=== PATIENT | female | born 1940 | race Hispanic/Latino ===

== ENCOUNTER 2020-07-10 09:42 | Inpatient (IN) | payer OTHER ==
[2020-07-10 10:44] LABS: Absolute Lymphocytes (CBC) 0.6 K/uL (0.7-4.9); Basophils % 0.6 % (0-1.3); Hematocrit 44.4 % (36.0-45.0); MPV 9.3 fL (7.6-11.3); RBC Red Blood Cell Count 4.99 M/uL (3.86-4.86)
[2020-07-10 10:50] LABS: Protime INR 0.95
[2020-07-10] MEDS ORDERED: METHYLPREDNISOLONE 125 MG INJ ONE (10:53)
[2020-07-10 11:20] LABS: Albumin 2.9 g/dL (3.4-5.0); Bilirubin Direct 0.2 mg/dL (0-0.2); Bilirubin Total 0.4 mg/dL (0.2-1.0); Ferritin 563.4 ng/mL (8-388); Potassium 4.2 mmol/L (3.5-5.1); Protein, Total 7.4 g/dL (6.4-8.2); Troponin (Emerg Dept Use Only) 0.07 ng/mL (0.0-0.045)
--- NOTE | 2020-07-10 11:26 | ER ---
Nurse's Notes [facility] Name: Liset Doll Age: 80 yrs Sex: Female : 1940 Arrival Date: 07/10/2020 Time: 09:45 Bed 14 Private MD: Diagnosis: Coronavirus infection, unspecified;Pneumonia, unspecified organism;Streptococcal pharyngitis;Hypoxemia Presentation: 07/10 10:05 Chief complaint: Patient's son or daughter states: grand daughter: Went to [place] last ca1 night for sore throat, decreased appetite and feeling sick. Reports fever 2- 3 days ago, cough. Covid+. Coronavirus screen: Client reports previous positive COVID test result. Date of collection: July 09, 2020 [place] Staff notified of need for isolation. Ebola Screen: Patient negative for fever greater than or equal to 101.5 degrees Fahrenheit, and additional compatible Ebola Virus Disease symptoms Patient denies exposure to infectious person. Patient denies travel to an Ebola-affected area in the 21 days before illness onset. No symptoms or risks identified at this time. Initial Sepsis Screen: Does the patient meet any 2 criteria? No. Patient's initial sepsis screen is negative. Does the patient have a suspected source of infection? No. Patient's initial sepsis screen is negative. Risk Assessment: Do you want to hurt yourself or someone else? Patient reports no desire to harm self or others. Onset of symptoms was July 10, 2020. 10:05 Method Of Arrival: Wheelchair ca1 10:05 Acuity: JOHANN 2 ca1 Historical: - Allergies: 10:10 PENICILLINS; ca1 - PMHx: 10:10 Hypertension; ca1 - PSHx: 10:10 Cholecystectomy; ca1 - Immunization history:: Adult Immunizations up to date, Pneumococcal vaccine is up to date, Flu vaccine is up to date. - Social history:: Smoking status: Patient denies any tobacco usage or history of. - Family history:: not pertinent. - Hospitalizations: : No recent hospitalization is reported. Screenin:49 Abuse screen: Denies threats or abuse. Denies injuries from another. Nutritional zb screening: No deficits noted. Tuberculosis screening: No symptoms or risk factors identified. Fall Risk None identified. Assessment: 10:47 General: Appears in no apparent distress. comfortable, Behavior is calm, cooperative, zb appropriate for age, Reports feeling ill for fatigue for. Pain: Denies pain. Neuro: Level of Consciousness is awake, alert, obeys commands, Oriented to person, place, time. Cardiovascular: Heart tones S1 S2 present Capillary refill < 3 seconds in bilateral fingers Patient's skin is warm and dry. Pulses are all present. Respiratory: Airway is patent Respiratory effort is even, unlabored, shallow, Respiratory pattern is regular, symmetrical. Respiratory: Reports shortness of breath cough that is Breath sounds with crackles bilaterally. in right upper lobe, left upper lobe, right middle lobe, left lower lobe and right lower lobe Breath sounds are diminished in left lower lobe and right lower lobe. GI: Abdomen is round non-distended, Bowel sounds present X 4 quads. : No signs and/or symptoms were reported regarding the genitourinary system. EENT: No signs and/or symptoms were reported regarding the EENT system. Derm: Skin is intact, Skin is pale. Musculoskeletal: Circulation, motion, and sensation intact. Capillary refill < 3 seconds, in bilateral fingers. Range of motion: intact in all extremities. 11:47 Reassessment: Patient appears in no apparent distress at this time. Patient and/or zb family updated on plan of care and expected duration. Pain level reassessed. Patient is alert, oriented x 3, equal unlabored respirations, skin warm/dry/pink. family at bedside. pt reports no pain. 12:49 Reassessment: Patient appears in no apparent distress at this time. Patient and/or zb family updated on plan of care and expected duration. Pain level reassessed. Patient is alert, oriented x 3, equal unlabored respirations, skin warm/dry/pink. pt given warm blanket. family at bedside. 13:20 Reassessment: Patient appears in no apparent distress at this time. Patient and/or zb family updated on plan of care and expected duration. Pain level reassessed. Patient is alert, oriented x 3, equal unlabored respirations, skin warm/dry/pink. family and patient updated on admission status. Vital Signs: 10:05 BP 114 / 61; Pulse 80; Resp 18 S; Temp 97.5(O); Pulse Ox 88% on R/A; Weight 80.74 kg; ca1 Height 5 ft. 4 in. (165 cm) (R); 11:07 BP 112 / 69; Pulse 76; Resp 18; Pulse Ox 94% on 3 lpm NC; zb 12:07 BP 106 / 60; Pulse 76; Resp 18; Pulse Ox 91% on 3 lpm NC; zb 12:50 BP 112 / 60; Pulse 77; Resp 18; Pulse Ox 92% on 3.5 lpm NC; zb 10:05 Body Mass Index 29.66 (80.74 kg, 165 cm) ca1 ED Course: 09:45 Patient arrived in ED. as 10:09 Triage completed. ca1 10:10 Arm band placed on right wrist. ca1 10:11 Luis Quispe MD is Attending Physician. rn 10:34 Cynthia Cazares RN is Primary Nurse. zb 10:49 Patient has correct armband on for positive identification. Bed in low position. Call zb light in reach. Side rails up X 1. Adult w/ patient. quality assurance monitor body on. Pulse ox on. NIBP on. Door closed. Noise minimized. 10:49 Inserted saline lock: 20 gauge in right antecubital area, using aseptic technique. zb 10:56 CXR XRAY In Process Unspecified. EDMS 11:25 Eldon Solano DO is Hospitalizing Provider. rn 13:07 No provider procedures requiring assistance completed. zb 13:26 Patient admitted, IV remains in place. zb Administered Medications: 10:46 Drug: SOLU-Medrol 125 mg Route: IVP; Site: right antecubital; zb 13:05 Follow up: Response: No adverse reaction zb 12:03 Drug: LevaQUIN 750 mg Volume: 150 ml; Route: IVPB; Infused Over: 90 mins; Site: right zb antecubital; 13:29 Follow up: Response: No adverse reaction; IV Status: Infusion continued upon admission zb Outcome: 11:25 Decision to Hospitalize by Provider. rn 13:20 Admitted to Med/surg accompanied by tech, via stretcher, room 403, with oxygen. zb 13:20 Condition: stable 13:20 Instructed on the need for admit, Demonstrated understanding of instructions. 13:29 Patient left the ED. zb Signatures: Dispatcher [employer] EDMS Arlene Coats Roman, MD MD rn Acob, Cheryl, RN RN ca1 Cynthia Cazares RN RN zb Corrections: (The following items were deleted from the chart) 12:25 12:07 BP 106 / 60; Pulse 76bpm; Resp 80bpm; Pulse Ox 91% 3 lpm Nasal Cannula; zb zb
--- NOTE | 2020-07-10 11:26 | EDPHYS ---
Physician Documentation [facility] Name: Liset Doll Age: 80 yrs Sex: Female : 1940 Arrival Date: 07/10/2020 Time: 09:45 Bed 14 Private MD: ED Physician Luis Quispe HPI: 07/10 10:53 This 80 yrs old Female presents to ER via Wheelchair with complaints of Covid rn Pneumonia, Strep +. 10:53 The patient has shortness of breath at rest, with light activity. Onset: The rn symptoms/episode began/occurred 1 week(s) ago. Duration: The symptoms are continuous. The patient's shortness of breath is aggravated by exertion, light activity, talking, walking. Associated signs and symptoms: Pertinent positives: productive cough, fever, Pertinent negatives: hemoptysis, loss of consciousness. Severity of symptoms: At their worst the symptoms were moderate in the emergency department the symptoms are unchanged. The patient has not experienced similar symptoms in the past. The patient has been recently seen by a physician:. Seen last night at [place], COVID+ and strep +, told needed admission but did not want to be admitted at [facility]. Comes here for sob and because wants to be admitted to a hospital instead of [facility]. . Historical: - Allergies: 10:10 PENICILLINS; ca1 - PMHx: 10:10 Hypertension; ca1 - PSHx: 10:10 Cholecystectomy; ca1 - Immunization history:: Adult Immunizations up to date, Pneumococcal vaccine is up to date, Flu vaccine is up to date. - Social history:: Smoking status: Patient denies any tobacco usage or history of. - Family history:: not pertinent. - Hospitalizations: : No recent hospitalization is reported. ROS: 11:04 Constitutional: + fever Eyes: Negative for injury, pain, redness, and discharge, ENT: + rn congestion and sore throat Neck: Negative for injury, pain, and swelling, Cardiovascular: Negative for chest pain, palpitations, and edema, Respiratory: + cough and sob Abdomen/GI: Negative for abdominal pain, nausea, vomiting, diarrhea, and constipation, MS/Extremity: Negative for injury and deformity, Skin: Negative for injury, rash, and discoloration, Neuro: Negative for headache, numbness, tingling, and seizure. Exam: 11:09 Constitutional: This is a well developed, well nourished patient who is awake, alert, rn and in no acute distress. Head/Face: Normocephalic, atraumatic. ENT: dry MM, no stridor Cardiovascular: Regular rate and rhythm. No pulse deficits. Respiratory: + mild tachypnea Abdomen/GI: Soft, non-tender Skin: warm, dry MS/ Extremity: Pulses equal, no cyanosis. Neurovascular intact. Full, normal range of motion. Equal circumference. Neuro: Awake and alert, GCS 15 Vital Signs: 10:05 BP 114 / 61; Pulse 80; Resp 18 S; Temp 97.5(O); Pulse Ox 88% on R/A; Weight 80.74 kg; ca1 Height 5 ft. 4 in. (165 cm) (R); 11:07 BP 112 / 69; Pulse 76; Resp 18; Pulse Ox 94% on 3 lpm NC; zb 12:07 BP 106 / 60; Pulse 76; Resp 18; Pulse Ox 91% on 3 lpm NC; zb 12:50 BP 112 / 60; Pulse 77; Resp 18; Pulse Ox 92% on 3.5 lpm NC; zb 10:05 Body Mass Index 29.66 (80.74 kg, 165 cm) ca1 MDM: 10:11 Patient medically screened. rn 11:21 Differential diagnosis: pneumonia, Pneumothorax pulmonary edema, Sepsis COVID. Data rn reviewed: vital signs, nurses notes, lab test result(s), radiologic studies, plain films, and as a result, I will admit patient. Counseling: I had a detailed discussion with the patient and/or guardian regarding: the historical points, exam findings, and any diagnostic results supporting the discharge/admit diagnosis, lab results, radiology results, the need for further work-up and treatment in the hospital. Admission orders: after a detailed discussion of the patient's condition and case, the admit orders are written by me. ED course: Pt with COVID pneumonia, oxygen saturation 79% on RA, will admit to Dr. Solano. . 07/10 10:12 Order name: Blood Culture Adult (2) rn 07/10 10:12 Order name: BMP; Complete Time: : rn 07/10 10:12 Order name: C-Reactive Protein; Complete Time: : rn 07/10 10:12 Order name: CBC with Diff; Complete Time: 11: rn 07/10 10:12 Order name: Ferritin; Complete Time: 11: rn 07/10 10:12 Order name: Lactate; Complete Time: : rn 07/10 10:12 Order name: LFT's; Complete Time: 11: rn 07/10 10:12 Order name: Procalcitonin; Complete Time: 11: rn 07/10 10:12 Order name: PT-INR; Complete Time: : rn 07/10 10:12 Order name: Ptt, Activated; Complete Time: 11: rn 07/10 10:12 Order name: Troponin (emerg Dept Use Only); Complete Time: 11: rn 07/10 10:12 Order name: CXR XRAY; Complete Time: 12:10 rn 07/10 10:12 Order name: EKG; Complete Time: 10:13 rn 07/10 10:12 Order name: Cardiac monitoring; Complete Time: 10:35 rn 07/10 10:12 Order name: Droplet/Contact Precautions; Complete Time: 10:35 rn 07/10 10:12 Order name: EKG - Nurse/Tech; Complete Time: 10:34 rn 07/10 10:12 Order name: IV Start; Complete Time: 10:34 rn 07/10 10:12 Order name: Labs collected and sent; Complete Time: 10:34 rn 07/10 10:12 Order name: O2 Per Protocol; Complete Time: 10:34 rn 07/10 10:12 Order name: O2 Sat Monitoring; Complete Time: 10:35 rn 07/10 12:12 Order name: Social Service Consult EDMS Administered Medications: 10:46 Drug: SOLU-Medrol 125 mg Route: IVP; Site: right antecubital; zb 13:05 Follow up: Response: No adverse reaction zb 12:03 Drug: LevaQUIN 750 mg Volume: 150 ml; Route: IVPB; Infused Over: 90 mins; Site: right zb antecubital; 13:29 Follow up: Response: No adverse reaction; IV Status: Infusion continued upon admission zb Disposition: 07/10/20 11:25 Hospitalization ordered by Eldon Solano for Inpatient Admission. Preliminary diagnosis are Coronavirus infection, unspecified, Pneumonia, unspecified organism, Streptococcal pharyngitis, Hypoxemia. - Bed requested for Telemetry/MedSurg (Inpatient). - Status is Inpatient Admission. zb - Condition is Stable. - Problem is new. - Symptoms have improved. Signatures: Dispatcher [employer] EDNatasha Rosado RN Luis Avila MD MD rn Acob, JOLLY Roldan RN, Zipporah, RN RN zb Corrections: (The following items were deleted from the chart) 11:05 10:53 Seen last night at [facility], COVID+ and strep +, told needed admission but did not rn want to be admitted at [facility].. rn 11:09 11:04 Constitutional: + fever Eyes: Negative for injury, pain, redness, and discharge, rn eligibility: + congestion and sore throat Neck: Negative for injury, pain, and swelling, Cardiovascular: Negative for chest pain, palpitations, and edema, Respiratory: + cough and sob Abdomen/GI: Negative for abdominal pain, nausea, vomiting, diarrhea, and constipation, MS/Extremity: Negative for injury and deformity, Skin: Negative for injury, rash, and discoloration, Neuro: Negative for headache, numbness, tingling, and seizure, rn 12:19 11:25 Hospitalization Ordered by Eldon Solano DO for Inpatient Admission. Preliminary dw diagnosis is Coronavirus infection, unspecified; Pneumonia, unspecified organism; Streptococcal pharyngitis; Hypoxemia. Bed requested for Telemetry/MedSurg (Inpatient). Status is Inpatient Admission. Condition is Stable. Problem is new. Symptoms have improved. rn 13:29 12:19 07/10/2020 11:25 Hospitalization Ordered by Eldon Solano DO for Inpatient zb Admission. Preliminary diagnosis is Coronavirus infection, unspecified; Pneumonia, unspecified organism; Streptococcal pharyngitis; Hypoxemia. Bed requested for Telemetry/MedSurg (Inpatient). Status is Inpatient Admission. Condition is Stable. Problem is new. Symptoms have improved. dw
--- NOTE | 2020-07-10 11:55 | RAD REPORT ---
EXAM DESCRIPTION: Bahman Single View07/10/2020 10:56 am CLINICAL HISTORY: Cough COMPARISON: 2007 FINDINGS: Moderate to marked right and moderate left alveolar opacities within the lungs. The heart is normal size IMPRESSION: Bilateral pneumonia right worse than left
--- NOTE | 2020-07-10 12:04 | P.HP ---
Certification for Inpatient Patient admitted to: Observation With expected LOS: <2 Midnights Patient will require the following post-hospital care: Other (Home oxygen) Practitioner: I am a practitioner with admitting privileges, knowledge of patient current condition, hospital course, and medical plan of care. Services: Services provided to patient in accordance with Admission requirements found in Title 42 Section 412.3 of the Code of Federal Regulations Patient History Date of Service: 07/10/20 Primary Care Provider: Mt Burnham NP Reason for admission: Shortness of breath, fatigue History of Present Illness: 80-year-old female with history of hypertension presented to the emergency room with increased fatigue and shortness of breath. Patient was seen last night at [facility]. Patient was found to be positive for COVID and Streptococcus. The facility recommended 24 hr observation. She preferred to go home. At home she continued to have shortness of breath. Decrease appetite, poor intake, and shortness of breath continued. Patient denied any nausea, vomiting. No significant chest pain noted. Family brought her in for further evaluation. In the ER patient was evaluated. Room-air saturations were in the 70s. Patient required oxygen. Currently on 3 L per nasal cannula at 94%. Vital signs sta ble. Pro calcitonin 0.14. Ferritin 563. CRP 113. Troponin 0.07. White count 3.9, hemoglobin 14.9. Platelet count 131. Sodium 139, potassium 4.2. BUN of 23, creatinine 0.97 with a GFR 55. Glucose 242. Patient given Levaquin and Solu- Medrol in the emergency room. Patient admitted for further evaluation and treatment. I saw the patient ER, family at bedside. Patient stable this time. 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 Home medications list reviewed: Yes - Past Medical/Surgical History Diabetic: No -: Hypertension -: Tinea pedis -: Cholecystectomy -: Hernia surgery Psychosocial/ Personal History: Patient - Family History Family History: Reviewed- Non-Contributory - Social History Smoking Status: Never smoker Alcohol use: No CD- Drugs: No Caffeine use: No Place of Residence: Home Review of Systems General: Fever, Weakness, Malaise Eyes: Unremarkable ENT: Nose Congestion, Throat Pain, As per HPI Respiratory: Cough, Shortness of Breath, SOB with Excertion, As per HPI Cardiovascular: Unremarkable Gastrointestinal: Unremarkable Genitourinary: Unremarkable Musculoskeletal: Unremarkable Integumentary: Unremarkable Neurological: As per HPI Lymphatics: Unremarkable Physical Examination - Physical Exam General: Alert, In no apparent distress, Oriented x3, Cooperative HEENT: Atraumatic, Normocephalic, Other (Dry mucous membranes) Neck: Supple Respiratory: Diminished (Bilateral), Other (Patient on 3 L per nasal cannula) Cardiovascular: Normal pulses, Regular rate/rhythm Gastrointestinal: Normal bowel sounds, No tenderness, No masses, No rebound, No guarding Musculoskeletal: No erythema, No tenderness, No warmth Integumentary: No tenderness/swelling, No erythema, No warmth, No cyanosis Neurological: Normal speech, Normal strength at 5/5 x4 extr, Normal tone, Normal affect - Studies Laboratory Data (last 24 hrs) 07/10/20 10:30: PT 11.2, INR 0.95, APTT 27.4 07/10/20 10:30: WBC 3.9 L, Hgb 14.9, Hct 44.4, Plt Count 131 L 07/10/20 10:30: Sodium 139, Potassium 4.2, BUN 23 H, Creatinine 0.97, Glucose 242 H, Total Bilirubin 0.4, AST 42 H, ALT 33, Alkaline Phosphatase 72 Assessment and Plan - Plan Impression: Fatigue, decreased appetite, shortness of breast secondary to COVID 19 pneumonia with hypoxia complicated with positive strep Hypertension Hyperglycemia suspect new diabetes mellitus type 2 Acute renal insufficiency likely from dehydration Plan: Fatigue, decreased appetite, shortness of breast secondary to COVID 19 pneumonia with hypoxia complicated with positive strep: Patient will be admitted to the COVID unit. Will maintain sats above 93%. Patient currently on 3 L per nasal cannula. Continue with Solu-Medrol. Will monitor ferritin and CRP. Will continue with Levaquin orally. Will provide Eliquis due to increase risk of PE/DVT. Will continue with vitamin supplementation including vitamin-C, D, thiamine, and melatonin. Will monitor closely. Consult pulmonology to further evaluate. Encourage oral intake. Patient also with hyperglycemia suspect underlying diabetes. Will check A1c. Sliding scale in place. Anticipate improvement over the next 48 hr. Patient will likely require home oxygen. Patient comes from home. Plan of care will be to discharge patient back to home. Advanced care directives address. Patient full code. Advanced care planning-30 min. Hypertension: Restart losartan. Hold nifedipine XR 30 mg. If blood pressure is elevated will restart nifedipine as well. Hyperglycemia suspect new diabetes mellitus type 2: Patient appears to have elevated blood sugar likely underlying diabetes. Check A1c. Will monitor closely. Provide sliding scale with Accu-Cheks. Acute renal insufficiency likely from dehydration: Encourage oral intake. Provide Glucerna supplementation. Discharge Plan: Home Plan to discharge in: 48 Hours - Advance Directives Does patient have a Living Will: No Does patient have a Durable POA for Healthcare: No - Code Status/Comfort Care Code Status Assessed: Yes (Patient full code) Time Spent Managing Pts Care (In Minutes): 55
[2020-07-10] MEDS ORDERED: Levofloxacin 750mg IV 750 MG/150 ML BAG IV ONE (12:11)
[2020-07-10] MEDS ORDERED: ONDANSETRON 4 MG/2 ML VIAL IV PRN (13:42)
[2020-07-10 13:44] VITALS: BMI 30.5
[2020-07-10] MEDS: ASCORBIC ACID 500 MG TABLET PO SCH ×2 (14:29→19:35)
[2020-07-10 15:21] LABS: Urine Appearance CLEAR; Urine Bilirubin NEGATIVE (NEG); Urine Blood NEGATIVE (NEG); Urine Color YELLOW; Urine Glucose 2+ (NEG); Urine Microscopic Reflex ORDER UMIC; Urine Protein TRACE (NEG); Urine Urobilinogen 0.2 mg/dL (0.2-1.0); Urine pH 5.5 (5.0-7.0)
[2020-07-10 15:39] LABS: Urine Bacteria <20 /HPF (<20); Urine RBC NONE SEEN /HPF (NONE SEEN)
[2020-07-10 15:40] LABS: Urine Coarse Granular Casts 0-5 /LPF (NONE SEEN)
[2020-07-10] MEDS: INSULIN -REGULAR HUMAN 50 UNIT/0.5 ML ML SQ SCH ×2 (16:24→19:57)
[2020-07-10] MEDS: METHYLPREDNISOLONE 125 MG INJ IV SCH (16:24)
[2020-07-10 17:20] LABS: CKMB Creatine Kinase MB 4.8 ng/mL (0.3-3.6); Troponin I 0.06 ng/mL (0.0-0.045)
[2020-07-10] MEDS: ACETAMINOPHEN 500 MG TAB PO PRN (19:33)
[2020-07-10] MEDS: APIXABAN 5 MG TABLET PO SCH (19:34)
[2020-07-10] MEDS: GLUCERNA SHAKE 237 ML CAN PO SCH (19:35)
[2020-07-10] MEDS: MELATONIN 5 MG TABLET PO PRN (19:35)
[2020-07-11] MEDS: METHYLPREDNISOLONE 125 MG INJ IV SCH ×3 (00:56→16:46)
[2020-07-11 01:12] LABS: CKMB Creatine Kinase MB 4.5 ng/mL (0.3-3.6); Troponin I 0.05 ng/mL (0.0-0.045)
[2020-07-11 03:55] LABS: Absolute Lymphocytes (CBC) 0.8 K/uL (0.7-4.9); Basophils % 0.2 % (0-1.3); Hematocrit 38.1 % (36.0-45.0); Lymphocytes % 8.5 % (15.3-44.8); MPV 9.8 fL (7.6-11.3); RBC Red Blood Cell Count 4.32 M/uL (3.86-4.86)
[2020-07-11 04:18] LABS: Magnesium 2.5 mg/dL (1.8-2.4); Potassium 4.3 mmol/L (3.5-5.1); Thyroid Stimulating Hormone 0.341 uIU/mL (0.360-3.740)
[2020-07-11 04:55] LABS: Blood Morphology Comment NOT SEEN (NOT SEEN); Platelet Estimate ADEQ
[2020-07-11 06:52] LABS: C-Reactive Protein 61.8 mg/L (<3.00); Ferritin 438.7 ng/mL (8-388)
[2020-07-11] MEDS: INSULIN -REGULAR HUMAN 50 UNIT/0.5 ML ML SQ SCH ×4 (07:30→20:23)
--- NOTE | 2020-07-11 07:53 | P.PN ---
Subjective Date of Service: 07/11/20 Primary Care Provider: Mt Burnham NP Chief Complaint: Shortness of breath, fatigue Subjective: Other (Patient requiring high-flow oxygen last night. FiO2 at 80%.) Physical Examination - Vital Signs Temperature: 96.6 F Blood Pressure: 108/58 Pulse: 71 Respirations: 20 Pulse Ox (%): 86 - Physical Exam General: Alert, In no apparent distress, Cooperative HEENT: Atraumatic Neck: Supple Respiratory: Other (Patient currently on high-flow oxygen. If I O2 at 80%.) Cardiovascular: Normal pulses, Regular rate/rhythm Gastrointestinal: No ascites Integumentary: No tenderness/swelling, No erythema Neurological: Normal speech, Normal strength at 5/5 x4 extr, Normal tone, Normal affect - Studies Laboratory Data (last 24 hrs) 07/10/20 10:30: PT 11.2, INR 0.95, APTT 27.4 07/10/20 10:30: WBC 3.9 L, Hgb 14.9, Hct 44.4, Plt Count 131 L 07/10/20 10:30: Sodium 139, Potassium 4.2, BUN 23 H, Creatinine 0.97, Glucose 242 H, Total Bilirubin 0.4, AST 42 H, ALT 33, Alkaline Phosphatase 72 Medications List Reviewed: Yes Assessment & Plan Discharge Plan: Home Plan to discharge in: 48 Hours Physician Review Additional Text: Impression: Fatigue, decreased appetite, shortness of breast secondary to COVID 19 pneumonia with hypoxia complicated with positive strep Hypertension Hyperglycemia with pre diabetes Acute renal insufficiency likely from dehydration Plan: Fatigue, decreased appetite, shortness of breast secondary to COVID 19 pneumonia with hypoxia complicated with positive strep: Continue with IV Solu-Medrol, Levaquin. Patient requiring high-flow oxygen last night. Currently on Fi02 of 80%. Will wean off. Encourage incentive spirometer. Continue to monitor the patient closely. Will change to inpatient status as the patient is requiring more oxygen. Patient remains on Eliquis due to increase risk of PE/DVT. Will discuss case further with pulmonology. Continue with vitamin supplementation. Anticipate improvement over the next 48 hr. Will monitor closely. Advanced care planning address in detail with family yesterday-30 min. This included patient being full code. Patient desires to go home at discharge. Anticipate patient likely requiring home oxygen at discharge. Hypertension: Restart losartan with parameters in place. Hold if blood pressure systolic less than 120. Hold nifedipine XR 30 mg. If blood pressure is elevated will restart nifedipine as well. Hyperglycemia with pre diabetes: Hemoglobin A1c 5.9. Patient with pre diabetes. Continue to monitor Accu-Cheks and provide sliding scale. No need for basal insulin. Anticipate improvement once were able to wean off IV Solu- Medrol. Acute renal insufficiency likely from dehydration: Encourage oral intake. Provide Glucerna supplementation. Time Spent Managing Pts Care (In Minutes): 55
[2020-07-11] MEDS: FOLIC ACID 1 MG TABLET PO SCH (08:26)
[2020-07-11] MEDS: APIXABAN 5 MG TABLET PO SCH ×2 (08:26→19:42)
[2020-07-11] MEDS: THIAMINE HCL 100 MG TABLET PO SCH (08:26)
[2020-07-11] MEDS: levoFLOXacin 500 MG TAB PO SCH (08:26)
[2020-07-11] MEDS: ASCORBIC ACID 500 MG TABLET PO SCH ×3 (08:27→19:42)
[2020-07-11] MEDS: GLUCERNA SHAKE 237 ML CAN PO SCH ×2 (08:27→19:47)
[2020-07-11] MEDS: VITAMIN D 1000 UNIT TAB PO SCH (08:28)
[2020-07-11] MEDS ORDERED: LOSARTAN POTASSIUM 50 MG TABLET PO SCH ×2 (09:00)
--- NOTE | 2020-07-11 12:47 | P.CNS ---
Date of Consult: 07/11/20 Primary Care Provider: Mt Burnham NP Chief Complaint: Shortness of breath, fatigue History of Present Illness: Patient is 80 years of age with a history of hypertension admitted from the emergency room with worsening fatigue shortness of breath poor appetite she is Khmer-speaking only was admitted with hypoxemia Patient tested positive for luevano virus infection at call tests emergency room is currently on high-flow oxygen requiring high concentration Allergies Penicillins Adverse Reaction (Verified 07/10/20 13:41) Itching/Hives/Rash Home Medications: Losartan Potassium 1 tab PO DAILY 07/10/20 Nifedipine [Nifedipine ER] 1 tab PO DAILY 07/10/20 terbinafine HCL [Terbinafine HCl] 1 tab PO DAILY 07/10/20 - Past Medical/Surgical History Diabetic: No -: Hypertension -: Tinea pedis -: Cholecystectomy -: Hernia surgery Psychosocial/ Personal History: Patient - Social History Smoking Status: Never smoker Alcohol use: No CD- Drugs: No Caffeine use: No Place of Residence: Home Review of Systems is unable to be obtained Physical Examination Temp Pulse Resp BP Pulse Ox 97.8 F 69 24 H 104/51 L 95 07/11/20 08:00 07/11/20 08:00 07/11/20 08:00 07/11/20 08:00 07/11/20 08:00 General: Alert, Moderate distress Respiratory: Clear to auscultation bilaterally Cardiovascular: No edema, Normal S1 S2 - Problems (1) Pneumonia due to 2019 novel coronavirus Current Visit: Yes Status: Acute Plan: Patient is 80 years of age admitted with respiratory failure from luevano virus this chest x-ray consistent ferritin level is less than 500 CRP mildly elevated continue with present therapy requiring high-flow oxygen
[2020-07-11] MEDS: ACETAMINOPHEN 500 MG TAB PO PRN (19:42)
[2020-07-11] MEDS: MELATONIN 5 MG TABLET PO PRN (19:42)
[2020-07-12] MEDS: METHYLPREDNISOLONE 125 MG INJ IV SCH ×3 (00:25→16:50)
[2020-07-12] MEDS ORDERED: LORazepam 2 MG/ML VIAL IV ONE (03:14)
[2020-07-12 04:02] LABS: C-Reactive Protein 57.2 mg/L (<3.00); Ferritin 536.2 ng/mL (8-388)
[2020-07-12] MEDS: INSULIN -REGULAR HUMAN 50 UNIT/0.5 ML ML SQ SCH ×4 (07:30→21:00)
[2020-07-12] MEDS: GLUCERNA SHAKE 237 ML CAN PO SCH ×2 (08:30→21:09)
[2020-07-12] MEDS: levoFLOXacin 500 MG TAB PO SCH (08:30)
[2020-07-12] MEDS: ASCORBIC ACID 500 MG TABLET PO SCH ×3 (08:30→21:08)
[2020-07-12] MEDS: FOLIC ACID 1 MG TABLET PO SCH (08:30)
[2020-07-12] MEDS: VITAMIN D 1000 UNIT TAB PO SCH (08:30)
[2020-07-12] MEDS: APIXABAN 5 MG TABLET PO SCH ×2 (08:31→21:08)
[2020-07-12] MEDS: THIAMINE HCL 100 MG TABLET PO SCH (08:40)
--- NOTE | 2020-07-12 14:40 | P.PN ---
Subjective Date of Service: 07/12/20 Primary Care Provider: Mt Burnham NP Chief Complaint: Shortness of breath, fatigue Subjective: Other (Patient is slowly improving. Still on high-flow oxygen.) Physical Examination - Vital Signs Temperature: 97 F Blood Pressure: 143/67 Pulse: 72 Respirations: 20 Pulse Ox (%): 91 - Physical Exam General: Alert HEENT: Atraumatic Neck: Supple Respiratory: Other (Patient requiring high-flow oxygen) Cardiovascular: Normal pulses, Regular rate/rhythm Gastrointestinal: Normal bowel sounds Neurological: Normal speech, Normal strength at 5/5 x4 extr, Normal tone, Normal affect - Studies Medications List Reviewed: Yes Assessment & Plan Discharge Plan: Home Plan to discharge in: 72 Hours Physician Review Additional Text: Impression: Fatigue, decreased appetite, shortness of breast secondary to COVID 19 pneumonia with hypoxia complicated with positive strep Hypertension Hyperglycemia with pre diabetes Acute renal insufficiency likely from dehydration Plan: Fatigue, decreased appetite, shortness of breast secondary to COVID 19 pneumonia with hypoxia complicated with positive strep: Patient is slowly improving. Continue IV Solu-Medrol and Levaquin. CRP improving. Continue to wean off high-flow oxygen. Continue supplementation and Eliquis. Will discuss further with pulmonology. Case discussed with son. Likely home in the next 48 hr if patient can be weaned off high-flow oxygen. Will need to consider adding Remdesivir if no improvement. Will continue to assess. Hypertension: Restart losartan with parameters in place. Hold if blood pressure systolic less than 120. Hold nifedipine XR 30 mg. If blood pressure is elevated will restart nifedipine as well. Hyperglycemia with pre diabetes: Hemoglobin A1c 5.9. Patient with pre diabetes. Continue to monitor Accu-Cheks and provide sliding scale. No need for basal insulin. Anticipate improvement once were able to wean off IV Solu- Medrol. Acute renal insufficiency likely from dehydration: Encourage oral intake. Provide Glucerna supplementation. Time Spent Managing Pts Care (In Minutes): 55
--- NOTE | 2020-07-12 14:59 | P.PN ---
Subjective Date of Service: 07/12/20 Primary Care Provider: Mt Burnham NP Chief Complaint: Respiratory failure from luevano virus Subjective: Improving (Patient states she is feeling better although still requiring high concentrations of oxygen) Review of Systems General: Weakness Physical Examination - Vital Signs Temperature: 97 F Blood Pressure: 143/67 Pulse: 72 Respirations: 20 Pulse Ox (%): 91 - Studies Medications List Reviewed: Yes Assessment & Plan - Problems (Diagnosis) (1) Pneumonia due to 2019 novel coronavirus Current Visit: Yes Status: Acute Plan: Patient has respiratory failure from coronal virus condition is currently stable continue with present treatment ferritin and CRP levels are declining
[2020-07-12] MEDS: ACETAMINOPHEN 500 MG TAB PO PRN (15:22)
[2020-07-12] MEDS: MELATONIN 5 MG TABLET PO PRN (21:10)
[2020-07-13] MEDS: METHYLPREDNISOLONE 125 MG INJ IV SCH ×3 (00:07→16:20)
[2020-07-13 04:14] LABS: Absolute Lymphocytes (CBC) 0.5 K/uL (0.7-4.9); Hematocrit 37.1 % (36.0-45.0); Lymphocytes % 4.6 % (15.3-44.8); MPV 10.4 fL (7.6-11.3); RBC Red Blood Cell Count 4.19 M/uL (3.86-4.86)
[2020-07-13 04:34] LABS: C-Reactive Protein 63.4 mg/L (<3.00); Ferritin 696.1 ng/mL (8-388); Potassium 4.6 mmol/L (3.5-5.1)
[2020-07-13] MEDS: INSULIN -REGULAR HUMAN 50 UNIT/0.5 ML ML SQ SCH ×4 (07:30→20:17)
[2020-07-13] MEDS: ASCORBIC ACID 500 MG TABLET PO SCH ×3 (08:12→20:27)
[2020-07-13] MEDS: levoFLOXacin 500 MG TAB PO SCH (08:12)
[2020-07-13] MEDS: THIAMINE HCL 100 MG TABLET PO SCH (08:12)
[2020-07-13] MEDS: SPIRONOLACTONE 25 MG TABLET PO SCH (08:14)
[2020-07-13] MEDS: APIXABAN 5 MG TABLET PO SCH ×2 (08:14→20:27)
[2020-07-13] MEDS: VITAMIN D 1000 UNIT TAB PO SCH (08:14)
[2020-07-13] MEDS: GLUCERNA SHAKE 237 ML CAN PO SCH ×2 (08:16→20:27)
[2020-07-13] MEDS: FOLIC ACID 1 MG TABLET PO SCH (08:29)
[2020-07-13] MEDS ORDERED: GLUCAGON 1 MG/VIAL IM PRN (10:55)
[2020-07-13] MEDS ORDERED: D50W 25 GM/50 ML SYRINGE IV PRN (10:55)
--- NOTE | 2020-07-13 10:58 | P.PN ---
Subjective Date of Service: 07/13/20 (Hospitalist) Primary Care Provider: Mt Burnham NP Chief Complaint: Respiratory failure from luevano virus No change still requiring high concentrations of oxygen very weak Review of Systems General: Weakness Respiratory: Shortness of Breath Physical Examination - Vital Signs Temperature: 96.8 F Blood Pressure: 151/70 Pulse: 57 Respirations: 32 Pulse Ox (%): 91 - Physical Exam General: Alert, Moderate distress Respiratory: Diminished - Studies Medications List Reviewed: Yes Assessment & Plan - Problems (Diagnosis) (1) Pneumonia due to 2019 novel coronavirus Current Visit: Yes Status: Acute Plan: Patient admitted with respiratory failure due to coronal virus still requiring high concentrations of oxygen ferritin levels above 500 CRP is also increased of increase the dose of Solu-Medrol continue with BiPAP I have also added Diflucan for fungal prophylaxis labs reviewed chest x-ray ordered blood pressure elevated I have added spironolactone Plan to discharge in: Greater than 2 days
[2020-07-13] MEDS: FLUCONAZOLE 100 MG TAB PO SCH (12:10)
[2020-07-13] MEDS: ACETAMINOPHEN 500 MG TAB PO PRN ×2 (13:40→20:44)
[2020-07-13] MEDS: INSULIN GLARGINE 100 UNITS/ML SQ SCH (16:20)
[2020-07-14] MEDS: METHYLPREDNISOLONE 125 MG INJ IV SCH ×3 (00:10→17:16)
[2020-07-14 04:30] LABS: C-Reactive Protein 38.7 mg/L (<3.00); Ferritin 665.1 ng/mL (8-388)
[2020-07-14] MEDS: INSULIN -REGULAR HUMAN 50 UNIT/0.5 ML ML SQ SCH ×4 (07:30→20:39)
[2020-07-14] MEDS: GLUCERNA SHAKE 237 ML CAN PO SCH ×2 (09:00→20:42)
[2020-07-14] MEDS: levoFLOXacin 500 MG TAB PO SCH (09:26)
[2020-07-14] MEDS: SPIRONOLACTONE 25 MG TABLET PO SCH (09:26)
[2020-07-14] MEDS: THIAMINE HCL 100 MG TABLET PO SCH (09:26)
[2020-07-14] MEDS: FLUCONAZOLE 100 MG TAB PO SCH (09:26)
[2020-07-14] MEDS: VITAMIN D 1000 UNIT TAB PO SCH (09:26)
[2020-07-14] MEDS: APIXABAN 5 MG TABLET PO SCH ×2 (09:27→20:41)
[2020-07-14] MEDS: ASCORBIC ACID 500 MG TABLET PO SCH ×3 (09:27→20:41)
[2020-07-14] MEDS: FOLIC ACID 1 MG TABLET PO SCH (09:27)
--- NOTE | 2020-07-14 11:12 | P.PN ---
Subjective Date of Service: 07/14/20 Primary Care Provider: Mt Burnham NP Chief Complaint: Respiratory failure from luevano virus Condition stable still weak still requiring high concentrations of oxygen Physical Examination - Vital Signs Temperature: 96.7 F Blood Pressure: 194/84 Pulse: 53 Respirations: 27 Pulse Ox (%): 88 - Studies Medications List Reviewed: Yes Assessment & Plan - Problems (Diagnosis) (1) Pneumonia due to 2019 novel coronavirus Current Visit: Yes Status: Acute Plan: Respiratory failure from luevano virus ferritin levels are declining this an 80% FiO2 will continue to titrate down start on melatonin 10 mg at night patient is on high doses of IV steroids
--- NOTE | 2020-07-14 11:36 | RAD REPORT ---
EXAM DESCRIPTION: RAD - Chest Single View - 07/14/2020 7:04 am CLINICAL HISTORY: Pneumonia Chest pain. COMPARISON: Chest Single View dated 07/10/2020; CHEST PA AND LAT 2 VIEW dated 11/05/2007 FINDINGS: Portable technique limits examination quality. Moderate bilateral pulmonary opacities are present with a small left pleural effusion noted. This is most likely related to pneumonia, greater on the left. The heart is mildly enlarged in size.
[2020-07-14] MEDS: AMLODIPINE 5 MG TAB PO SCH (12:54)
--- NOTE | 2020-07-14 13:32 | P.PN ---
Subjective Date of Service: 07/14/20 Primary Care Provider: Mt Burnham NP Chief Complaint: Respiratory failure from luevano virus Subjective: Doing well Physical Examination - Vital Signs Temperature: 96.5 F Blood Pressure: 194/84 Pulse: 53 Respirations: 26 Pulse Ox (%): 91 - Physical Exam General: Alert, Cooperative HEENT: Atraumatic Neck: Supple Respiratory: Other (on BIPAP) Cardiovascular: Normal pulses, Regular rate/rhythm Gastrointestinal: Normal bowel sounds, No tenderness, No masses, No rebound, No guarding Neurological: Normal speech, Normal strength at 5/5 x4 extr, Normal tone, Normal affect - Studies Medications List Reviewed: Yes Assessment & Plan Discharge Plan: Home Physician Review Additional Text: Impression: Fatigue, decreased appetite, shortness of breast secondary to COVID 19 pneumonia with hypoxia complicated with positive strep Hypertension Hyperglycemia with pre diabetes Acute renal insufficiency likely from dehydration Plan: Fatigue, decreased appetite, shortness of breast secondary to COVID 19 pneumonia with hypoxia complicated with positive strep: Patient with slow recovery. Continue IV Solu-Medrol. CRP improved. Patient still requiring high-flow oxygen and BiPAP. Case discussed with son and pulmonology. Will pursue initiating Remdesivir and convalescent plasma. Will start this. Pharmacy to monitor and adjust. Continue supplementation and Eliquis. I will turn the service over to the hospitalist team tomorrow. I will go plan of care with him. Hypertension: Continue losartan with parameters in place. Hold if blood pressure systolic less than 120. Will consider restarting calcium channel chuck today. Hyperglycemia with pre diabetes: Hemoglobin A1c 5.9. Patient with pre diabetes. Continue to monitor Accu-Cheks and provide sliding scale. No need for basal insulin. Anticipate improvement once were able to wean off IV Solu-M edrol. Acute renal insufficiency likely from dehydration: Encourage oral intake. Provide Glucerna supplementation. Time Spent Managing Pts Care (In Minutes): 55
[2020-07-14] MEDS ORDERED: Remdesivir 200 MG in NA CHLORIDE 0.9% 250 ML IV ONE (16:45)
[2020-07-14] MEDS: INSULIN GLARGINE 100 UNITS/ML SQ SCH (17:16)
[2020-07-14] MEDS: MELATONIN 5 MG TABLET PO SCH (20:42)
[2020-07-14] MEDS ORDERED: NA CHLORIDE 0.9% 100 ML ONE (22:18)
[2020-07-15] MEDS: METHYLPREDNISOLONE 125 MG INJ IV SCH ×3 (00:25→21:03)
[2020-07-15] MEDS: INSULIN -REGULAR HUMAN 50 UNIT/0.5 ML ML SQ SCH ×4 (07:30→21:03)
[2020-07-15 07:48] LABS: MPV 9.6 fL (7.6-11.3); RBC Red Blood Cell Count 4.56 M/uL (3.86-4.86)
[2020-07-15 08:01] LABS: Potassium 3.6 mmol/L (3.5-5.1)
[2020-07-15] MEDS: THIAMINE HCL 100 MG TABLET PO SCH (08:33)
[2020-07-15] MEDS: levoFLOXacin 500 MG TAB PO SCH (08:34)
[2020-07-15] MEDS: AMLODIPINE 5 MG TAB PO SCH (08:34)
[2020-07-15] MEDS: FOLIC ACID 1 MG TABLET PO SCH (08:34)
[2020-07-15] MEDS: SPIRONOLACTONE 25 MG TABLET PO SCH ×2 (08:34→21:01)
[2020-07-15] MEDS: FLUCONAZOLE 100 MG TAB PO SCH (08:34)
[2020-07-15] MEDS: APIXABAN 5 MG TABLET PO SCH ×2 (08:34→21:01)
[2020-07-15] MEDS: VITAMIN D 1000 UNIT TAB PO SCH (08:34)
[2020-07-15] MEDS: ASCORBIC ACID 500 MG TABLET PO SCH ×3 (08:34→21:01)
[2020-07-15] MEDS: GLUCERNA SHAKE 237 ML CAN PO SCH ×2 (08:35→21:00)
[2020-07-15 08:36] LABS: Albumin 2.4 g/dL (3.4-5.0); Bilirubin Direct 0.2 mg/dL (0-0.2); Bilirubin Total 0.5 mg/dL (0.2-1.0); C-Reactive Protein 20.2 mg/L (<3.00); Ferritin 562.8 ng/mL (8-388); Potassium 3.7 mmol/L (3.5-5.1); Protein, Total 6.3 g/dL (6.4-8.2)
[2020-07-15] MEDS ORDERED: Remdesivir 100 MG in NA CHLORIDE 0.9% 250 ML IV SCH (09:00)
[2020-07-15] MEDS ORDERED: POTASSIUM 25 MEQ EFFERV TAB PO ONE ×2 (09:44→16:57)
--- NOTE | 2020-07-15 10:31 | P.PN ---
Subjective Date of Service: 07/15/20 Primary Care Provider: Mt Burnham NP Chief Complaint: Respiratory failure from luevano virus Patient is improving oxygen requirements declining ferritin levels of also decrease Physical Examination - Vital Signs Temperature: 97.6 F Blood Pressure: 164/61 Pulse: 71 Respirations: 20 Pulse Ox (%): 92 - Physical Exam General: Alert, Cooperative Respiratory: Clear to auscultation bilaterally, Diminished - Studies Medications List Reviewed: Yes Assessment & Plan - Problems (Diagnosis) (1) Pneumonia due to 2019 novel coronavirus Current Visit: Yes Status: Acute Plan: Respiratory failure from luevano virus oxygen requirements declining the continue to wean down her oxygen of decrease the dose of for Solu-Medrol to 80 mg twice a day hypertension increase spironolactone and a and amlodipine chest x-ray improving
--- NOTE | 2020-07-15 12:55 | RAD REPORT ---
EXAM DESCRIPTION: RAD - Chest Single View - 07/15/2020 6:32 am CLINICAL HISTORY: Pneumonia Chest pain. COMPARISON: Chest Single View dated 07/14/2020; Chest Single View dated 07/10/2020; CHEST PA AND LAT 2 VIEW dated 11/05/2007 FINDINGS: Portable technique limits examination quality. Bilateral pulmonary opacities are again noted, appearing mildly improved since prior study. Most like ly this represents mild improvement in pneumonia. The heart is upper limit of normal in size.
[2020-07-15] MEDS: Remdesivir 100 MG in NA CHLORIDE 0.9% 250 ML IV SCH (17:08)
[2020-07-15] MEDS: INSULIN GLARGINE 100 UNITS/ML SQ SCH (17:09)
[2020-07-15] MEDS: MELATONIN 5 MG TABLET PO SCH (21:00)
[2020-07-16 05:00] LABS: Potassium 3.8 mmol/L (3.5-5.1)
[2020-07-16 05:01] LABS: Albumin 2.4 g/dL (3.4-5.0); Bilirubin Direct 0.2 mg/dL (0-0.2); Bilirubin Total 0.6 mg/dL (0.2-1.0); Protein, Total 6.3 g/dL (6.4-8.2)
[2020-07-16] MEDS ORDERED: POTASSIUM 25 MEQ EFFERV TAB PO ONE (06:02)
--- NOTE | 2020-07-16 07:47 | RAD REPORT ---
EXAM DESCRIPTION: RAD - Chest Single View - 07/16/2020 7:08 am CLINICAL HISTORY: Pneumonia COMPARISON: July 15 TECHNIQUE: AP portable chest image was obtained 07/16/2020 7:08 am . FINDINGS: Interstitial and alveolar opacification worse in the lower left lung field is again noted. Lung dang are not clearly different from comparison. Heart and vasculature are normal. No measurable pleural effusion and no pneumothorax. No acute bony abnormality seen. No acute aortic findings suspected. IMPRESSION: Stable chest.
[2020-07-16] MEDS: THIAMINE HCL 100 MG TABLET PO SCH (08:29)
[2020-07-16] MEDS: FLUCONAZOLE 100 MG TAB PO SCH (08:29)
[2020-07-16] MEDS: INSULIN -REGULAR HUMAN 50 UNIT/0.5 ML ML SQ SCH ×4 (08:30→21:53)
[2020-07-16] MEDS: levoFLOXacin 500 MG TAB PO SCH (08:31)
[2020-07-16] MEDS: AMLODIPINE 5 MG TAB PO SCH (08:31)
[2020-07-16] MEDS: ASCORBIC ACID 500 MG TABLET PO SCH ×3 (08:32→21:54)
[2020-07-16] MEDS: APIXABAN 5 MG TABLET PO SCH ×2 (08:32→21:50)
[2020-07-16] MEDS: FOLIC ACID 1 MG TABLET PO SCH (08:32)
[2020-07-16] MEDS: SPIRONOLACTONE 25 MG TABLET PO SCH ×2 (08:32→21:50)
[2020-07-16] MEDS: VITAMIN D 1000 UNIT TAB PO SCH (08:32)
[2020-07-16] MEDS: METHYLPREDNISOLONE 125 MG INJ IV SCH ×2 (08:32→21:53)
[2020-07-16] MEDS: GLUCERNA SHAKE 237 ML CAN PO SCH ×2 (08:34→21:00)
--- NOTE | 2020-07-16 10:06 | P.PN ---
Subjective Date of Service: 07/16/20 Primary Care Provider: Mt Burnham NP Chief Complaint: Respiratory failure from luevano virus Improving oxygenation has improved still feeling weak Review of Systems General: Weakness Respiratory: Shortness of Breath Physical Examination - Vital Signs Temperature: 97.5 F Blood Pressure: 155/72 Pulse: 75 Respirations: 24 Pulse Ox (%): 95 - Studies Microbiology Data (last 24 hrs): 07/10/20 10:43 Blood - Blood Aerobic Blood Culture - Final No growth in 5 days. 07/10/20 10:43 Blood - Blood Anaerobic Blood Culture - Final No growth in 5 days. 07/10/20 10:30 Blood - Blood Aerobic Blood Culture - Final No growth in 5 days. 07/10/20 10:30 Blood - Blood Anaerobic Blood Culture - Final No growth in 5 days. Medications List Reviewed: Yes Assessment & Plan - Problems (Diagnosis) (1) Pneumonia due to 2019 novel coronavirus Current Visit: Yes Status: Acute Plan: Respiratory failure patient is making progress continue to titrate O2 down to sat of 88-90% blood pressure is better control CRP ferritin levels order possible discharge tomorrow
[2020-07-16] MEDS: Remdesivir 100 MG in NA CHLORIDE 0.9% 250 ML IV SCH (16:00)
[2020-07-16] MEDS: INSULIN GLARGINE 100 UNITS/ML SQ SCH (16:01)
[2020-07-16] MEDS: MELATONIN 5 MG TABLET PO SCH (21:00)
[2020-07-17] MEDS: ACETAMINOPHEN 500 MG TAB PO PRN (04:37)
[2020-07-17 07:09] LABS: Albumin 2.3 g/dL (3.4-5.0); Bilirubin Direct 0.2 mg/dL (0-0.2); Bilirubin Total 0.6 mg/dL (0.2-1.0); C-Reactive Protein 14.5 mg/L (<3.00); Potassium 3.7 mmol/L (3.5-5.1)
[2020-07-17] MEDS: INSULIN -REGULAR HUMAN 50 UNIT/0.5 ML ML SQ SCH ×4 (07:13→21:00)
[2020-07-17] MEDS: AMLODIPINE 5 MG TAB PO SCH (07:45)
[2020-07-17] MEDS: SPIRONOLACTONE 25 MG TABLET PO SCH ×2 (07:45→19:56)
[2020-07-17] MEDS: levoFLOXacin 500 MG TAB PO SCH (07:45)
[2020-07-17] MEDS: THIAMINE HCL 100 MG TABLET PO SCH (07:45)
[2020-07-17] MEDS: FLUCONAZOLE 100 MG TAB PO SCH (07:45)
[2020-07-17] MEDS: APIXABAN 5 MG TABLET PO SCH ×2 (07:45→19:56)
[2020-07-17] MEDS: GLUCERNA SHAKE 237 ML CAN PO SCH ×2 (07:46→21:00)
[2020-07-17] MEDS: FOLIC ACID 1 MG TABLET PO SCH (07:46)
[2020-07-17] MEDS: ASCORBIC ACID 500 MG TABLET PO SCH ×3 (07:46→19:58)
[2020-07-17] MEDS: VITAMIN D 1000 UNIT TAB PO SCH (07:46)
[2020-07-17] MEDS: METHYLPREDNISOLONE 125 MG INJ IV SCH ×2 (07:46→19:57)
[2020-07-17] MEDS ORDERED: POTASSIUM CL SA 10 MEQ TAB PO ONE (09:00)
--- NOTE | 2020-07-17 12:04 | P.PN ---
Subjective Date of Service: 07/17/20 Primary Care Provider: Mt Burnham NP Chief Complaint: Respiratory failure from luevano virus Patient is still very weak coughing still requiring high concentrations of oxygen Review of Systems General: Weakness Respiratory: Shortness of Breath Physical Examination - Vital Signs Temperature: 97.4 F Blood Pressure: 183/86 Pulse: 85 Respirations: 20 Pulse Ox (%): 95 - Studies Medications List Reviewed: Yes Assessment & Plan - Problems (Diagnosis) (1) Pneumonia due to 2019 novel coronavirus Current Visit: Yes Status: Acute Plan: Respiratory failure from luevano virus trial of nasal cannula oxygen still very weak blood sugars elevated increase Lantus blood pressure is also elevated
[2020-07-17] MEDS: FUROSEMIDE 20 MG/ 2ML VIAL IV SCH (15:06)
[2020-07-17] MEDS ORDERED: MORPHINE 2 MG/ML SYR IV PRN (16:11)
[2020-07-17] MEDS ORDERED: BENZONATATE 100 MG CAP PO PRN (16:12)
[2020-07-17] MEDS: METOPROLOL TARTRATE 5 MG/5 ML INJ IV STA ×3 (16:30→16:40)
[2020-07-17] MEDS ORDERED: METOPROLOL TARTRATE 5 MG/5 ML INJ IV ONE ×3 (16:42→16:47)
[2020-07-17] MEDS: INSULIN GLARGINE 100 UNITS/ML SQ SCH (17:22)
[2020-07-17] MEDS: Remdesivir 100 MG in NA CHLORIDE 0.9% 250 ML IV SCH (17:23)
[2020-07-17] MEDS ORDERED: DIGOXIN 0.25 MG/ML AMP IV SCH (18:00)
[2020-07-17] MEDS ORDERED: LORazepam 2 MG/ML VIAL IV ONE ×2 (19:30→21:58)
[2020-07-17] MEDS: MELATONIN 5 MG TABLET PO SCH (19:57)
[2020-07-17] MEDS: BENZONATATE 100 MG CAP PO PRN (19:58)
[2020-07-17] MEDS ORDERED: LORazepam 2 MG/ML VIAL ONE (21:08)
[2020-07-17] MEDS: DIGOXIN 0.25 MG/ML AMP IV SCH (22:00)
[2020-07-18] MEDS: DIGOXIN 0.25 MG/ML AMP IV SCH (04:00)
[2020-07-18 06:49] LABS: Albumin 2.3 g/dL (3.4-5.0); Bilirubin Direct 0.2 mg/dL (0-0.2); Bilirubin Total 0.7 mg/dL (0.2-1.0); C-Reactive Protein 21.9 mg/L (<3.00); Ferritin 668.3 ng/mL (8-388)
[2020-07-18] MEDS: INSULIN -REGULAR HUMAN 50 UNIT/0.5 ML ML SQ SCH ×4 (07:30→21:00)
[2020-07-18] MEDS: FOLIC ACID 1 MG TABLET PO SCH (08:32)
[2020-07-18] MEDS: SPIRONOLACTONE 25 MG TABLET PO SCH ×2 (08:32→21:58)
[2020-07-18] MEDS: AMLODIPINE 5 MG TAB PO SCH (08:32)
[2020-07-18] MEDS: METHYLPREDNISOLONE 125 MG INJ IV SCH ×2 (08:32→21:59)
[2020-07-18] MEDS: VITAMIN D 1000 UNIT TAB PO SCH (08:32)
[2020-07-18] MEDS: APIXABAN 5 MG TABLET PO SCH ×2 (08:32→21:59)
[2020-07-18] MEDS: levoFLOXacin 500 MG TAB PO SCH (08:33)
[2020-07-18] MEDS: GLUCERNA SHAKE 237 ML CAN PO SCH ×2 (08:33→22:02)
[2020-07-18] MEDS: ASCORBIC ACID 500 MG TABLET PO SCH ×3 (08:33→22:00)
[2020-07-18] MEDS: FUROSEMIDE 20 MG/ 2ML VIAL IV SCH (08:33)
[2020-07-18] MEDS: FLUCONAZOLE 100 MG TAB PO SCH (08:33)
[2020-07-18] MEDS: THIAMINE HCL 100 MG TABLET PO SCH (08:40)
--- NOTE | 2020-07-18 11:52 | P.PN ---
Subjective Date of Service: 07/18/20 Primary Care Provider: Mt Burnham NP Chief Complaint: Respiratory failure from luevano virus No change feeling weak having some coughing spells unable to wean off high concentrations of oxygen Physical Examination - Vital Signs Temperature: 98.1 F Blood Pressure: 146/67 Pulse: 76 Respirations: 22 Pulse Ox (%): 88 - Studies Medications List Reviewed: Yes Assessment & Plan - Problems (Diagnosis) (1) Pneumonia due to 2019 novel coronavirus Current Visit: Yes Status: Acute Plan: Respiratory failure no change continue with the weaning labs reviewed ferritin is still over 500 CRP is less than 30 blood pressure is stable patient is now on Lasix sat is only 80% on 6 L continue with steroids
[2020-07-18] MEDS: Remdesivir 100 MG in NA CHLORIDE 0.9% 250 ML IV SCH (16:13)
[2020-07-18] MEDS: INSULIN GLARGINE 100 UNITS/ML SQ SCH (16:14)
[2020-07-18] MEDS: MELATONIN 5 MG TABLET PO SCH (21:59)
[2020-07-19 05:00] LABS: C-Reactive Protein 49.4 mg/L (<3.00); Ferritin 674.6 ng/mL (8-388); Magnesium 2.2 mg/dL (1.8-2.4); Potassium 3.7 mmol/L (3.5-5.1)
[2020-07-19] MEDS: GLUCERNA SHAKE 237 ML CAN PO SCH ×2 (05:00→08:24)
[2020-07-19] MEDS: BENZONATATE 100 MG CAP PO PRN (05:12)
[2020-07-19] MEDS: INSULIN -REGULAR HUMAN 50 UNIT/0.5 ML ML SQ SCH ×4 (07:30→21:00)
[2020-07-19] MEDS ORDERED: POTASSIUM CL SA 10 MEQ TAB PO ONE (08:00)
--- NOTE | 2020-07-19 08:00 | P.PN ---
Subjective Date of Service: 07/17/20 PATIENT REQUIRING BIPAP SUPPORT AT TIMES. PATIENT WOULD TACHYARRHYTHMIA AT TIMES WELL. CONTINUE MONITORING PATIENT'S CURRENT CLINICAL STATUS CLOSELY. SHE IS VERY WEAK AND FRAIL & SLOW TO RECOVER. SWEDISH-SPEAKING ONLY. LANGUAGE LINE USE TO SPEAK WITH PATIENT Review of Systems 10-point ROS is otherwise unremarkable Physical Examination - Vital Signs Temperature: 97.6 F Blood Pressure: 116/56 Pulse: 95 Respirations: 20 Pulse Ox (%): 88 - Physical Exam General: Alert, In no apparent distress, Oriented x3 Respiratory: Diminished, Expiratory wheezes Cardiovascular: Regular rate/rhythm, Normal S1 S2, No murmurs Gastrointestinal: Normal bowel sounds, Soft and benign, Non-distended, No tenderness Musculoskeletal: No clubbing, No swelling, No tenderness Neurological: Sensation intact, Cranial nerves 3-12 intact Lymphatics: No axilla or inguinal lymphadenopathy - Studies Medications List Reviewed: Yes Assessment & Plan - Problems (Diagnosis) (1) Atrial fibrillation Current Visit: Yes Status: Acute (2) Hypoxemia Current Visit: Yes Status: Acute (3) Pneumonia due to 2019 novel coronavirus Current Visit: Yes Status: Acute - Plan 1. Continue with IV antibiotics; continue with IV steroids; status post Remdesivir 2. BiPAP support as needed 3. Repeat chest x-ray if symptoms are progressively worsening 4. O2 per protocol 5. Pulmonary consultation appreciated 6. Continue with albuterol inhaler therapy; IV dexamethasone; zinc and vitamin-C 7. O2 per protocol 8. Medication for rate control 9. Repeat labs including D-dimer, ferritin, and CRP and LFTs 10. GI and DVT prophylaxis Discharge Plan: Home Plan to discharge in: Greater than 2 days - Advance Directives Does patient have a Living Will: No Does patient have a Durable POA for Healthcare: No - Code Status/Comfort Care Code Status Assessed: Yes Code Status: Full Code Critical Care: No Time Spent Managing PTS Care (In Minutes): 35
[2020-07-19] MEDS ORDERED: DIGOXIN 0.25 MG/ML AMP IV ONE (08:02)
[2020-07-19] MEDS ORDERED: METOPROLOL TARTRATE 5 MG/5 ML INJ IV STA (08:02)
--- NOTE | 2020-07-19 08:05 | P.PN ---
Subjective Date of Service: 07/18/20 Patient with no significant changes. Continues to have dyspnea at rest. Looks a little more comfortable today. Will place her on high-flow oxygen. Continue to monitor closely. Review of Systems 10-point ROS is otherwise unremarkable Physical Examination - Vital Signs Temperature: 97.6 F Blood Pressure: 116/56 Pulse: 95 Respirations: 20 Pulse Ox (%): 88 - Physical Exam General: Alert, In no apparent distress, Oriented x2 Respiratory: Diminished, Crackles/rales Cardiovascular: Regular rate/rhythm, Normal S1 S2 Gastrointestinal: Normal bowel sounds, Soft and benign, Non-distended Musculoskeletal: No clubbing, No swelling - Studies Medications List Reviewed: Yes Assessment & Plan - Problems (Diagnosis) (1) Atrial fibrillation Current Visit: Yes Status: Acute (2) Hypoxemia Current Visit: Yes Status: Acute (3) Pneumonia due to 2019 novel coronavirus Current Visit: Yes Status: Acute - Plan Continue with plan of care as mentioned below 1. Continue with IV antibiotics; continue with IV steroids; status post Remdesivir 2. BiPAP support as needed; slowly improving 3. Repeat chest x-ray if symptoms are progressively worsening 4. Continiue with high flow oxygen 5. Pulmonary consultation appreciated 6. Continue with albuterol inhaler therapy; 7. Medication for rate control; anticoagulation 8. Monitor inflammatory markers 9. GI and DVT prophylaxis Discharge Plan: Home Plan to discharge in: Greater than 2 days - Advance Directives Does patient have a Living Will: No Does patient have a Durable POA for Healthcare: No - Code Status/Comfort Care Code Status: Full Code Critical Care: No Time Spent Managing PTS Care (In Minutes): 35
[2020-07-19] MEDS ORDERED: METOPROLOL TARTRATE 5 MG/5 ML INJ IV ONE (08:19)
[2020-07-19] MEDS: AMLODIPINE 5 MG TAB PO SCH (08:23)
[2020-07-19] MEDS: FLUCONAZOLE 100 MG TAB PO SCH (08:23)
[2020-07-19] MEDS: THIAMINE HCL 100 MG TABLET PO SCH (08:23)
[2020-07-19] MEDS: FOLIC ACID 1 MG TABLET PO SCH (08:24)
[2020-07-19] MEDS: levoFLOXacin 500 MG TAB PO SCH (08:24)
[2020-07-19] MEDS: VITAMIN D 1000 UNIT TAB PO SCH (08:24)
[2020-07-19] MEDS: SPIRONOLACTONE 25 MG TABLET PO SCH ×2 (08:24→22:08)
[2020-07-19] MEDS: ASCORBIC ACID 500 MG TABLET PO SCH ×3 (08:24→22:08)
[2020-07-19] MEDS: APIXABAN 5 MG TABLET PO SCH ×2 (08:24→22:10)
[2020-07-19] MEDS: FUROSEMIDE 20 MG/ 2ML VIAL IV SCH (08:27)
[2020-07-19] MEDS: DIGOXIN 0.25 MG TABLET PO SCH (08:27)
[2020-07-19] MEDS: METHYLPREDNISOLONE 125 MG INJ IV SCH ×2 (08:28→22:09)
[2020-07-19 08:39] LABS: Absolute Lymphocytes (CBC) 0.2 K/uL (0.7-4.9); Basophils % 0.1 % (0-1.3); Hematocrit 43.7 % (36.0-45.0); Lymphocytes % 1.2 % (15.3-44.8); MPV 8.7 fL (7.6-11.3); RBC Red Blood Cell Count 4.98 M/uL (3.86-4.86)
[2020-07-19 09:00] LABS: Albumin 2.2 g/dL (3.4-5.0); Bilirubin Total 0.8 mg/dL (0.2-1.0); C-Reactive Protein 50.4 mg/L (<3.00); Potassium 3.7 mmol/L (3.5-5.1); Protein, Total 5.7 g/dL (6.4-8.2)
[2020-07-19 09:12] LABS: Thyroid Stimulating Hormone 0.866 uIU/mL (0.360-3.740)
[2020-07-19 09:40] LABS: Blood Morphology Comment NOT SEEN (NOT SEEN); Platelet Estimate ADEQ; White Blood Cell Scan OK (OK)
--- NOTE | 2020-07-19 12:26 | P.PN ---
Subjective Date of Service: 07/19/20 Primary Care Provider: Mt Burnham NP Chief Complaint: Respiratory failure from luevano virus Patient is not doing well still very hypoxic requiring high concentrations of oxygen Review of Systems General: Weakness Respiratory: Shortness of Breath Physical Examination - Vital Signs Temperature: 97.6 F Blood Pressure: 154/74 Pulse: 86 Respirations: 20 Pulse Ox (%): 88 - Studies Medications List Reviewed: Yes Assessment & Plan - Problems (Diagnosis) (1) Pneumonia due to 2019 novel coronavirus Current Visit: Yes Status: Acute Plan: Respiratory failure from luevano virus patient is very weak debilitated blood pressure is still little elevated patient developed AFib today she is anti coagulated in non beta blockers prognosis poor consider LTAC
[2020-07-19] MEDS ORDERED: METHYLPREDNISOLONE 40 MG INJ IV ONE (12:53)
[2020-07-19] MEDS: INSULIN GLARGINE 100 UNITS/ML SQ SCH (17:09)
[2020-07-19] MEDS: METOPROLOL TAR 25 MG TAB PO SCH (17:10)
[2020-07-19] MEDS: MELATONIN 5 MG TABLET PO SCH (22:08)
[2020-07-19] MEDS: ACETAMINOPHEN 500 MG TAB PO PRN (22:20)
[2020-07-20] MEDS: METOPROLOL TAR 25 MG TAB PO SCH ×2 (05:51→17:00)
[2020-07-20 06:14] LABS: Absolute Lymphocytes (CBC) 0.2 K/uL (0.7-4.9); Hematocrit 42.1 % (36.0-45.0); Lymphocytes % 1.6 % (15.3-44.8); MPV 9.5 fL (7.6-11.3); RBC Red Blood Cell Count 4.82 M/uL (3.86-4.86)
[2020-07-20 06:36] LABS: Albumin 2.2 g/dL (3.4-5.0); Bilirubin Total 0.7 mg/dL (0.2-1.0); C-Reactive Protein 36.2 mg/L (<3.00); Ferritin 701.8 ng/mL (8-388); Magnesium 2.4 mg/dL (1.8-2.4); Phosphorus 3.5 mg/dL (2.5-4.9); Protein, Total 5.7 g/dL (6.4-8.2)
[2020-07-20] MEDS: INSULIN -REGULAR HUMAN 50 UNIT/0.5 ML ML SQ SCH ×4 (07:29→21:00)
[2020-07-20] MEDS: FLUCONAZOLE 100 MG TAB PO SCH (08:20)
[2020-07-20] MEDS: DIGOXIN 0.25 MG TABLET PO SCH (08:20)
[2020-07-20] MEDS: VITAMIN D 1000 UNIT TAB PO SCH (08:20)
[2020-07-20] MEDS: AMLODIPINE 5 MG TAB PO SCH (08:20)
[2020-07-20] MEDS: THIAMINE HCL 100 MG TABLET PO SCH (08:20)
[2020-07-20] MEDS: FUROSEMIDE 20 MG/ 2ML VIAL IV SCH (08:21)
[2020-07-20] MEDS: SPIRONOLACTONE 25 MG TABLET PO SCH ×2 (08:21→22:01)
[2020-07-20] MEDS: METHYLPREDNISOLONE 125 MG INJ IV SCH ×2 (08:21→21:42)
[2020-07-20] MEDS: ASCORBIC ACID 500 MG TABLET PO SCH ×3 (08:21→21:41)
[2020-07-20] MEDS: levoFLOXacin 500 MG TAB PO SCH (08:22)
[2020-07-20] MEDS: FOLIC ACID 1 MG TABLET PO SCH (08:22)
[2020-07-20] MEDS: APIXABAN 5 MG TABLET PO SCH ×2 (08:22→21:40)
[2020-07-20] MEDS: GLUCERNA SHAKE 237 ML CAN PO SCH ×2 (08:22→21:46)
--- NOTE | 2020-07-20 08:27 | P.PN ---
Subjective Date of Service: 07/19/20 Patient alternating between high flow in BiPAP support. Continue gradually weaning down FiO2. She is feeling better today and is want to get out of bed. Spoke with daughter as well. Patient may need LTAC placement Review of Systems 10-point ROS is otherwise unremarkable Physical Examination - Vital Signs Temperature: 97.7 F Blood Pressure: 156/72 Pulse: 68 Respirations: 26 Pulse Ox (%): 90 - Physical Exam General: Alert, In no apparent distress, Oriented x3 Respiratory: Diminished, Expiratory wheezes, Rhonchi/gurgles Cardiovascular: Regular rate/rhythm, Normal S1 S2, No murmurs Gastrointestinal: Normal bowel sounds, Soft and benign, Non-distended, No tenderness Musculoskeletal: No clubbing, No swelling, No tenderness Neurological: Normal strength at 5/5 x4 extr, Sensation intact, Cranial nerves 3-12 intact - Studies Medications List Reviewed: Yes Assessment & Plan - Problems (Diagnosis) (1) Atrial fibrillation Current Visit: Yes Status: Acute (2) Hypoxemia Current Visit: Yes Status: Acute (3) Pneumonia due to 2019 novel coronavirus Current Visit: Yes Status: Acute - Plan Continue with plan of care as mentioned below 1. Continue with IV antibiotics; continue with IV steroids; status post Remdesivir 2. BiPAP support as needed; alternating with high-flow oxygen 3. Patient is improving and at this time will not repeat oxygen unless her clinical status changes 4. O2 per protocol 5. Pulmonary consultation appreciated 6. Arrangements for LTAC placement 7. Medication for rate control; anticoagulation 8. Monitor inflammatory markers 9. GI and DVT prophylaxis Discharge Plan: Home Plan to discharge in: Greater than 2 days - Advance Directives Does patient have a Living Will: No Does patient have a Durable POA for Healthcare: No - Code Status/Comfort Care Code Status: Full Code Critical Care: No Time Spent Managing PTS Care (In Minutes): 30
--- NOTE | 2020-07-20 11:46 | P.PN ---
Subjective Date of Service: 07/20/20 Primary Care Provider: Mt Burnham NP Chief Complaint: Respiratory failure from luevano virus Doing better still feeling weak oxygen requirements have been declining Physical Examination - Vital Signs Temperature: 97.7 F Blood Pressure: 156/72 Pulse: 68 Respirations: 26 Pulse Ox (%): 90 - Studies Medications List Reviewed: Yes Assessment & Plan - Problems (Diagnosis) (1) Pneumonia due to 2019 novel coronavirus Current Visit: Yes Status: Acute Plan: Respiratory failure from luevano virus ferritin levels of started declining oxygen requirements of also been decreasing white count is also declining of reduce the dose of the Solu-Medrol
[2020-07-20] MEDS: INSULIN GLARGINE 100 UNITS/ML SQ SCH (16:19)
[2020-07-20] MEDS: MELATONIN 5 MG TABLET PO SCH (21:00)
[2020-07-21] MEDS: METOPROLOL TAR 25 MG TAB PO SCH ×2 (05:50→18:31)
[2020-07-21] MEDS: INSULIN -REGULAR HUMAN 50 UNIT/0.5 ML ML SQ SCH ×4 (07:30→20:07)
[2020-07-21] MEDS: levoFLOXacin 500 MG TAB PO SCH (08:57)
[2020-07-21] MEDS: ASCORBIC ACID 500 MG TABLET PO SCH ×3 (08:58→20:06)
[2020-07-21] MEDS: AMLODIPINE 5 MG TAB PO SCH (08:58)
[2020-07-21] MEDS: APIXABAN 5 MG TABLET PO SCH ×2 (08:58→20:06)
[2020-07-21] MEDS: FOLIC ACID 1 MG TABLET PO SCH (08:59)
[2020-07-21] MEDS: THIAMINE HCL 100 MG TABLET PO SCH (08:59)
[2020-07-21] MEDS: VITAMIN D 1000 UNIT TAB PO SCH (08:59)
[2020-07-21] MEDS: SPIRONOLACTONE 25 MG TABLET PO SCH ×2 (08:59→20:06)
[2020-07-21] MEDS: DIGOXIN 0.25 MG TABLET PO SCH (08:59)
[2020-07-21] MEDS: FLUCONAZOLE 100 MG TAB PO SCH (08:59)
[2020-07-21] MEDS: GLUCERNA SHAKE 237 ML CAN PO SCH ×2 (09:00→20:07)
[2020-07-21] MEDS: METHYLPREDNISOLONE 125 MG INJ IV SCH ×2 (09:01→20:07)
[2020-07-21] MEDS: FUROSEMIDE 20 MG/ 2ML VIAL IV SCH (09:01)
[2020-07-21] MEDS: ACETAMINOPHEN 500 MG TAB PO PRN (15:09)
[2020-07-21] MEDS ORDERED: ACETAMIN/CAFFEINE/BUTALB TAB PO ONE (15:28)
--- NOTE | 2020-07-21 16:15 | EKG ---
Test Date: 2020-07-19 Test Time: 08:38:06 Ecologist Technician: NICOLASA MEASUREMENT RESULTS: Intervals: Rate: 88 IL: 146 QRSD: 72 QT: 382 QTc: 462 [place]: P: 33 IL: 146 QRS: 0 T: 8 INTERPRETIVE STATEMENTS: Normal sinus rhythm Minimal voltage criteria for LVH, may be normal variant Nonspecific T wave abnormality Abnormal ECG Compared to ECG 07/17/2020 20:57:10 No significant changes Electronically Signed On 07-21-20 16:10:02 SENIOR CREDIT ANALYST by Christian Guerrero
--- NOTE | 2020-07-21 16:18 | EKG ---
Test Date: 2020-07-17 Test Time: 20:57:10 Film Reader: RT MEASUREMENT RESULTS: Intervals: Rate: 76 CT: 148 QRSD: 78 QT: 396 QTc: 445 [place]: P: 39 CT: 148 QRS: 1 T: 24 INTERPRETIVE STATEMENTS: Normal sinus rhythm Minimal voltage criteria for LVH, may be normal variant Nonspecific T wave abnormality Abnormal ECG Compared to ECG 07/10/2020 10:27:13 T-wave abnormality now present Atrial flutter no longer present Myocardial infarct finding no longer present Electronically Signed On 07-21-20 16:10:28 MOTHER TESTER by Christian Guerrero
[2020-07-21] MEDS: INSULIN GLARGINE 100 UNITS/ML SQ SCH (18:30)
[2020-07-21] MEDS: MELATONIN 5 MG TABLET PO SCH (20:07)
[2020-07-22] MEDS: METOPROLOL TAR 25 MG TAB PO SCH ×2 (04:53→18:11)
[2020-07-22] MEDS: INSULIN -REGULAR HUMAN 50 UNIT/0.5 ML ML SQ SCH ×4 (07:30→21:00)
[2020-07-22] MEDS: BENZONATATE 100 MG CAP PO PRN (08:10)
[2020-07-22] MEDS: SPIRONOLACTONE 25 MG TABLET PO SCH ×2 (08:10→21:26)
[2020-07-22] MEDS: ASCORBIC ACID 500 MG TABLET PO SCH ×3 (08:10→21:26)
[2020-07-22] MEDS: AMLODIPINE 5 MG TAB PO SCH (08:10)
[2020-07-22] MEDS: VITAMIN D 1000 UNIT TAB PO SCH (08:10)
[2020-07-22] MEDS: DIGOXIN 0.25 MG TABLET PO SCH (08:10)
[2020-07-22] MEDS: GLUCERNA SHAKE 237 ML CAN PO SCH ×2 (08:11→21:00)
[2020-07-22] MEDS: FOLIC ACID 1 MG TABLET PO SCH (08:11)
[2020-07-22] MEDS: APIXABAN 5 MG TABLET PO SCH ×2 (08:11→21:26)
[2020-07-22] MEDS: METHYLPREDNISOLONE 125 MG INJ IV SCH ×2 (08:11→21:27)
[2020-07-22] MEDS: FUROSEMIDE 20 MG/ 2ML VIAL IV SCH (08:11)
[2020-07-22] MEDS: FLUCONAZOLE 100 MG TAB PO SCH (08:11)
[2020-07-22] MEDS: levoFLOXacin 500 MG TAB PO SCH (08:11)
[2020-07-22] MEDS: THIAMINE HCL 100 MG TABLET PO SCH (08:15)
[2020-07-22 08:42] LABS: C-Reactive Protein 11.3 mg/L (<3.00); Ferritin 820.1 ng/mL (8-388)
--- NOTE | 2020-07-22 09:22 | P.PN ---
Subjective Date of Service: 07/20/20 Subjective: No new changes, No C/O voiced Assisted patient in getting out of bed into a chair with respiratory therapy. Patient clinically appears to be doing better. Remains on high-flow at this time. Awaiting LTAC placement. Spoke with patient using language line Review of Systems 10-point ROS is otherwise unremarkable Physical Examination - Vital Signs Temperature: 98.5 F Blood Pressure: 139/63 Pulse: 72 Respirations: 24 Pulse Ox (%): 83 - Physical Exam General: Alert, In no apparent distress, Oriented x3 Respiratory: Diminished, Expiratory wheezes Cardiovascular: Regular rate/rhythm, Normal S1 S2, No murmurs Gastrointestinal: Soft and benign, Non-distended Musculoskeletal: No clubbing, No swelling Neurological: Sensation intact, Cranial nerves 3-12 intact Lymphatics: No axilla or inguinal lymphadenopathy - Studies Medications List Reviewed: Yes Assessment & Plan - Problems (Diagnosis) (1) Atrial fibrillation Current Visit: Yes Status: Acute (2) Hypoxemia Current Visit: Yes Status: Acute (3) Pneumonia due to 2019 novel coronavirus Current Visit: Yes Status: Acute - Plan Continue with plan of care as mentioned below 1. Continue with IV antibiotics; continue with IV steroids; status post Remdesivir 2. Remains on high-flow. Helped her get out of bed into a chair with RT. She did well. Wanting to ambulate; PT eval and treatment 3. Continue with current plan of care and arrange for LTAC placement 4. Slowly wean off oxygen 5. Continue with medication for rate control; anticoagulation 6. Continue with monitoring inflammatory markers 7. GI and DVT prophylaxis Discharge Plan: LTAC Plan to discharge in: Greater than 2 days - Advance Directives Does patient have a Living Will: No Does patient have a Durable POA for Healthcare: No - Code Status/Comfort Care Code Status: Full Code Critical Care: No Time Spent Managing PTS Care (In Minutes): 35
--- NOTE | 2020-07-22 09:26 | P.PN ---
Subjective Date of Service: 07/21/20 Patient continues to improve with no new complaints. Complaining of headache to language line model builder. Otherwise, she states she is breathing better. She was able to get to a chair with minimal assistance per nursing today. Her strength appears to be continued to improve. Review of Systems 10-point ROS is otherwise unremarkable Physical Examination - Vital Signs Temperature: 98.5 F Blood Pressure: 139/63 Pulse: 72 Respirations: 24 Pulse Ox (%): 83 - Physical Exam General: Alert, In no apparent distress, Oriented x3 Respiratory: Diminished, Expiratory wheezes Cardiovascular: Regular rate/rhythm, Normal S1 S2, No murmurs Gastrointestinal: Normal bowel sounds, Soft and benign, Non-distended Musculoskeletal: No clubbing, No swelling Integumentary: No rashes Neurological: Sensation intact, Cranial nerves 3-12 intact - Studies Medications List Reviewed: Yes Assessment & Plan - Problems (Diagnosis) (1) Atrial fibrillation Current Visit: Yes Status: Acute (2) Hypoxemia Current Visit: Yes Status: Acute (3) Pneumonia due to 2019 novel coronavirus Current Visit: Yes Status: Acute (4) Headache Current Visit: Yes Status: Acute - Plan Continue with plan of care as mentioned below 1. Continue with IV antibiotics; continue with IV steroids; status post Remdesivir; we need to start tapering steroid dosage 2. Remains on high-flow. Continuing to do well. Gradually weaning down. She is getting out of bed on her own. 3. Continue with current plan of care and arrange for LTAC placement 4. Slowly wean off oxygen; patient remains on high-flow 5. Medication for rate control; anticoagulation 6. Monitor inflammatory markers 7. Will give Fioricet for headache and see if that alleviates her symptoms 8. GI and DVT prophylaxis Discharge Plan: Home Plan to discharge in: Greater than 2 days - Advance Directives Does patient have a Living Will: No Does patient have a Durable POA for Healthcare: No - Code Status/Comfort Care Code Status: Full Code Critical Care: No Time Spent Managing PTS Care (In Minutes): 35
--- NOTE | 2020-07-22 09:32 | P.PN ---
Subjective Date of Service: 07/22/20 Patient continues to slowly improve. Spoke with patient's family members regarding her current clinical status. She remains on high-flow oxygen. Attempted patient on nasal cannula but she desatted into the 80s. She will remain on high-flow for now. Continue gradually weaning down over the next 48 hr. Review of Systems 10-point ROS is otherwise unremarkable Physical Examination - Vital Signs Temperature: 96.6 F Blood Pressure: 140/60 Pulse: 88 Respirations: 22 Pulse Ox (%): 95 - Physical Exam General: Alert, In no apparent distress, Oriented x3, Other (Patient remains on high-flow oxygen) HEENT: Atraumatic, PERRLA, EOMI Neck: Supple, JVD not distended Respiratory: Normal air movement, Expiratory wheezes Cardiovascular: Regular rate/rhythm, Normal S1 S2, Systolic murmur Gastrointestinal: Normal bowel sounds, Soft and benign, Non-distended Musculoskeletal: No clubbing, No swelling Neurological: Normal gait, Normal strength at 5/5 x4 extr, Normal tone, Sensation intact, Cranial nerves 3-12 intact Lymphatics: No axilla or inguinal lymphadenopathy - Studies Medications List Reviewed: Yes Assessment & Plan - Problems (Diagnosis) (1) Atrial fibrillation Current Visit: Yes Status: Acute (2) Hypoxemia Current Visit: Yes Status: Acute (3) Pneumonia due to 2019 novel coronavirus Current Visit: Yes Status: Acute (4) Headache Current Visit: Yes Status: Acute - Plan Continue with plan of care as mentioned below 1. Continue on IV steroids. Patient on antifungal and Levaquin. She has been on the antifungal for quite a while now. Probably will discontinue it. Should be able to discontinue the Levaquin as well 2. Remains on high-flow. Attempted nasal cannula trial but unsuccessful & remains on high-flow 3. Continue with current plan of care and arrange for LTAC placement 4. Headache is improved today. Fioricet as needed 5. Medication for rate control; anticoagulation 6. Monitor inflammatory markers every 48 hr 7. GI and DVT prophylaxis Discharge Plan: LTAC - Advance Directives Does patient have a Living Will: No Does patient have a Durable POA for Healthcare: No - Code Status/Comfort Care Code Status: Full Code Critical Care: No Time Spent Managing PTS Care (In Minutes): 35
--- NOTE | 2020-07-22 10:44 | P.PN ---
Subjective Date of Service: 07/22/20 Primary Care Provider: Mt Burnham NP Chief Complaint: Respiratory failure from luevano virus Patient is improving feeling weak Review of Systems General: Weakness Physical Examination - Vital Signs Temperature: 96.6 F Blood Pressure: 140/60 Pulse: 88 Respirations: 22 Pulse Ox (%): 95 - Studies Medications List Reviewed: Yes Assessment & Plan - Problems (Diagnosis) (1) Pneumonia due to 2019 novel coronavirus Current Visit: Yes Status: Acute Plan: Respiratory failure from luevano virus ferritin levels of started declining oxygen requirements of also been decreasing white count is also declining of reduce the dose of the Solu-Medrol continue titrate to sat of 88 90% on 4 L na todd cannula oxygen ferritin level still significantly elevated
[2020-07-22] MEDS: INSULIN GLARGINE 100 UNITS/ML SQ SCH (18:10)
[2020-07-22] MEDS: MELATONIN 5 MG TABLET PO SCH (21:00)
[2020-07-23] MEDS: METOPROLOL TAR 25 MG TAB PO SCH ×2 (06:09→16:34)
[2020-07-23 06:16] LABS: Absolute Lymphocytes (CBC) 0.2 K/uL (0.7-4.9); Basophils % 0.1 % (0-1.3); Hematocrit 40.6 % (36.0-45.0); Lymphocytes % 1.4 % (15.3-44.8); MPV 9.1 fL (7.6-11.3); RBC Red Blood Cell Count 4.68 M/uL (3.86-4.86)
[2020-07-23 06:35] LABS: Albumin 2.3 g/dL (3.4-5.0); Bilirubin Total 0.8 mg/dL (0.2-1.0); C-Reactive Protein 8.61 mg/L (<3.00); Ferritin 1071.4 ng/mL (8-388); Magnesium 2.9 mg/dL (1.8-2.4); Phosphorus 4.5 mg/dL (2.5-4.9); Potassium 3.9 mmol/L (3.5-5.1); Protein, Total 5.4 g/dL (6.4-8.2)
[2020-07-23] MEDS: INSULIN -REGULAR HUMAN 50 UNIT/0.5 ML ML SQ SCH ×4 (07:30→21:00)
[2020-07-23] MEDS ORDERED: POTASSIUM CL SA 10 MEQ TAB PO ONE (08:00)
[2020-07-23] MEDS: FUROSEMIDE 20 MG/ 2ML VIAL IV SCH (08:20)
[2020-07-23] MEDS: METHYLPREDNISOLONE 125 MG INJ IV SCH ×2 (08:21→21:41)
[2020-07-23] MEDS: DIGOXIN 0.25 MG TABLET PO SCH (08:21)
[2020-07-23] MEDS: SPIRONOLACTONE 25 MG TABLET PO SCH ×2 (08:21→21:43)
[2020-07-23] MEDS: VITAMIN D 1000 UNIT TAB PO SCH (08:21)
[2020-07-23] MEDS: FOLIC ACID 1 MG TABLET PO SCH (08:21)
[2020-07-23] MEDS: ASCORBIC ACID 500 MG TABLET PO SCH ×3 (08:22→21:41)
[2020-07-23] MEDS: GLUCERNA SHAKE 237 ML CAN PO SCH ×2 (08:22→21:00)
[2020-07-23] MEDS: AMLODIPINE 5 MG TAB PO SCH (08:22)
[2020-07-23] MEDS: THIAMINE HCL 100 MG TABLET PO SCH (09:00)
[2020-07-23] MEDS: APIXABAN 5 MG TABLET PO SCH ×2 (10:11→21:40)
[2020-07-23] MEDS: INSULIN GLARGINE 100 UNITS/ML SQ SCH (16:33)
[2020-07-23] MEDS: MELATONIN 5 MG TABLET PO SCH (21:00)
--- NOTE | 2020-07-24 04:04 | P.PN ---
Subjective Date of Service: 07/23/20 Spoke with patient on the language line. Patient continues to do well. Slowly improving. Awaiting LTAC placement. Review of Systems 10-point ROS is otherwise unremarkable Physical Examination - Vital Signs Temperature: 96.8 F Blood Pressure: 140/65 Pulse: 69 Respirations: 22 Pulse Ox (%): 90 - Physical Exam General: Alert, In no apparent distress, Oriented x3 Respiratory: Diminished, Expiratory wheezes Cardiovascular: Regular rate/rhythm, Normal S1 S2, No murmurs Gastrointestinal: Normal bowel sounds, Soft and benign, Non-distended, No tenderness Musculoskeletal: No clubbing, No swelling, No tenderness Neurological: Normal strength at 5/5 x4 extr, Sensation intact, Cranial nerves 3-12 intact - Studies Medications List Reviewed: Yes Assessment & Plan - Problems (Diagnosis) (1) Atrial fibrillation Current Visit: Yes Status: Acute (2) Hypoxemia Current Visit: Yes Status: Acute (3) Pneumonia due to 2019 novel coronavirus Current Visit: Yes Status: Acute (4) Headache Current Visit: Yes Status: Acute - Plan Continue with plan of care as mentioned below 1. Continue on IV steroids. 2. Remains on high-flow. Attempted nasal cannula trial but unsuccessful & remains on high-flow 3. Continue with current plan of care and arrange for LTAC placement 4. Headache is improved today. Fioricet as needed 5. Medication for rate control; anticoagulation 6. Monitor inflammatory markers every 48 hr 7. GI and DVT prophylaxis Discharge Plan: Home Plan to discharge in: Greater than 2 days - Advance Directives Does patient have a Living Will: No Does patient have a Durable POA for Healthcare: No - Code Status/Comfort Care Code Status: Full Code Critical Care: No Time Spent Managing PTS Care (In Minutes): 30
[2020-07-24 04:56] LABS: Potassium 4.3 mmol/L (3.5-5.1)
[2020-07-24] MEDS: ACETAMINOPHEN 500 MG TAB PO PRN (06:22)
[2020-07-24] MEDS: METOPROLOL TAR 25 MG TAB PO SCH ×2 (06:23→17:24)
[2020-07-24] MEDS: INSULIN -REGULAR HUMAN 50 UNIT/0.5 ML ML SQ SCH ×4 (07:30→21:00)
[2020-07-24] MEDS: FOLIC ACID 1 MG TABLET PO SCH (08:29)
[2020-07-24] MEDS: DIGOXIN 0.25 MG TABLET PO SCH (08:29)
[2020-07-24] MEDS: METHYLPREDNISOLONE 125 MG INJ IV SCH ×2 (08:29→22:02)
[2020-07-24] MEDS: FUROSEMIDE 20 MG/ 2ML VIAL IV SCH (08:29)
[2020-07-24] MEDS: SPIRONOLACTONE 25 MG TABLET PO SCH ×2 (08:29→22:02)
[2020-07-24] MEDS: VITAMIN D 1000 UNIT TAB PO SCH (08:29)
[2020-07-24] MEDS: GLUCERNA SHAKE 237 ML CAN PO SCH ×2 (08:30→22:03)
[2020-07-24] MEDS: AMLODIPINE 5 MG TAB PO SCH (08:30)
[2020-07-24] MEDS: ASCORBIC ACID 500 MG TABLET PO SCH ×3 (08:31→22:01)
[2020-07-24] MEDS: APIXABAN 5 MG TABLET PO SCH ×2 (08:31→22:01)
[2020-07-24 08:45] LABS: Absolute Lymphocytes (CBC) 0.2 K/uL (0.7-4.9); Basophils % 0.4 % (0-1.3); Hematocrit 42.7 % (36.0-45.0); Lymphocytes % 1.3 % (15.3-44.8); MPV 9.5 fL (7.6-11.3); RBC Red Blood Cell Count 4.95 M/uL (3.86-4.86)
[2020-07-24] MEDS: THIAMINE HCL 100 MG TABLET PO SCH (09:00)
[2020-07-24 09:04] LABS: C-Reactive Protein 5.49 mg/L (<3.00); Ferritin 1385.6 ng/mL (8-388)
[2020-07-24 09:42] LABS: Platelet Estimate ADEQ; Platelets, Giant FEW; White Blood Cell Scan OK (OK)
[2020-07-24 09:43] LABS: Blood Morphology Comment NOT SEEN (NOT SEEN)
--- NOTE | 2020-07-24 11:16 | P.PN ---
Subjective Date of Service: 07/24/20 Primary Care Provider: Mt Burnham NP Chief Complaint: Respiratory failure from luevano virus Subjective: Other (Patient reports improvement but still on high-flow oxygen. Some anxiety noted.) Physical Examination - Vital Signs Temperature: 96.7 F Blood Pressure: 148/67 Pulse: 78 Respirations: 20 Pulse Ox (%): 98 - Physical Exam General: Alert, In no apparent distress, Cooperative HEENT: Atraumatic Neck: Supple Respiratory: Other (Patient on high-flow oxygen. No distress noted) Cardiovascular: Normal pulses Neurological: Normal speech, Normal strength at 5/5 x4 extr, Normal tone, Normal affect - Studies Medications List Reviewed: Yes Assessment & Plan Discharge Plan: LTAC Plan to discharge in: 24 Hours Physician Review Additional Text: Impression: Fatigue, decreased appetite, shortness of breast secondary to COVID 19 pneumonia with hypoxia complicated with positive strep Hypertension Hyperglycemia with pre diabetes Acute renal insufficiency likely from dehydration Plan: Fatigue, decreased appetite, shortness of breast secondary to COVID 19 pneumonia with hypoxia complicated with positive strep: Patient still with slow recovery. Currently on high-flow. CRP improved. Continue wean off oxygen. Patient remains on IV Solu-Medrol. Case discussed with pulmonology. Recommend long- term acute care facility placement to continue pulmonary rehab. Spoke with son and patient who agree. Will discuss with social worker psychiatric to help arrange for long-term acute care facility placement. Hypertension: Continue current medications, will monitor and adjust appropriately. Hyperglycemia with pre diabetes: Hemoglobin A1c 5.9. Blood sugars are decrease with poor appetite. Will discontinue basal insulin. Continue sliding scale. Continue to adjust IV Solu-Medrol once improved parvin looney Acute renal insufficiency likely from dehydration: Patient on Aldactone. Discontinue IV Lasix. Encourage oral intake. Provide Glucerna supplementation. Time Spent Managing Pts Care (In Minutes): 55
[2020-07-24] MEDS ORDERED: D50W 25 GM/50 ML VIAL IV PRN (16:49)
[2020-07-24] MEDS: MELATONIN 5 MG TABLET PO SCH (22:01)
[2020-07-25] MEDS: ALPRAZOLAM 0.25 MG TABLET PO PRN ×2 (01:46→20:32)
[2020-07-25] MEDS: ACETAMINOPHEN 500 MG TAB PO PRN ×3 (01:46→17:37)
[2020-07-25] MEDS: METOPROLOL TAR 25 MG TAB PO SCH ×2 (05:30→17:29)
[2020-07-25] MEDS: INSULIN -REGULAR HUMAN 50 UNIT/0.5 ML ML SQ SCH ×4 (07:30→20:33)
[2020-07-25] MEDS: GLUCERNA SHAKE 237 ML CAN PO SCH ×2 (09:00→20:33)
[2020-07-25] MEDS: THIAMINE HCL 100 MG TABLET PO SCH (09:00)
--- NOTE | 2020-07-25 09:06 | P.DS ---
Admission Date: 07/11/20 Discharge Date: 07/25/20 Primary Care Provider: Mt Soria NP Disposition: [facility] Discharge Condition: GOOD Reason for Admission: Respiratory failure from luevano virus Consultations: Pulmonary-Dr. Dela Cruz Procedures: CXR: FINDINGS: Interstitial and alveolar opacification worse in the lower left lung field is again noted. Lung dang are not clearly different from comparison. Heart and vasculature are normal. No measurable pleural effusion and no pneumothorax. No acute bony abnormality seen. No acute aortic findings suspected. IMPRESSION: Stable chest. Medical Problem List: Fatigue, decreased appetite, shortness of breast secondary to COVID 19 pneumonia with hypoxia complicated with positive strep Hypertension Hyperglycemia with pre diabetes Acute renal insufficiency likely from dehydration Paroxysmally atrial fibrillation Brief History of Present Illness: 80-year-old female with history of hypertension presented to the emergency room with increased fatigue and shortness of breath. Patient was seen last night at [facility]. Patient was found to be positive for COVID and Streptococcus. The facility recommended 24 hr observation. She preferred to go home. At home she continued to have shortness of breath. Decrease appetite, poor intake, and shortness of breath continued. Patient denied any nausea, vomiting. No significant chest pain noted. Family brought her in for further evaluation. In the ER patient was evaluated. Room-air saturations were in the 70s. Patient required oxygen. Currently on 3 L per nasal cannula at 94%. Vital signs stable. Pro calcitonin 0.14. Ferritin 563. CRP 113. Troponin 0.07. White count 3.9, hemoglobin 14.9. Platelet count 131. Sodium 139, potassium 4.2. BUN of 23, creatinine 0.97 with a GFR 55. Glucose 242. Patient given Levaquin and Solu-Medrol in the emergency room. Patient admitted for further evaluation and treatment. I saw the patient ER, family at bedside. Patient stable this time. 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 Hospital Course: Patient presented with Fatigue, decreased appetite, shortness of breast secondary to COVID 19 pneumonia with hypoxia complicated with positive strep. H er course was prolonged. Patient remains on high-flow oxygen. Due to her prolonged course long-term acute care facility placement was recommended for pulmonary rehab. Patient has been accepted. Patient and family have agreed with plan of care. Patient will be transferred to long-term acute facility to continue current care. Patient remains on high-flow oxygen. Patient will continue with Solu-Medrol 80 mg IV twice daily. Other medications include Eliquis, Norvasc, digoxin, Aldactone, metoprolol, and Xanax. Patient also on supplementation. Patient will continue at the facility to continue her care. Patient with hypertension. As mentioned above patient will continue with Norvasc and metoprolol. Further adjustment can be done at the facility. Patient with hyperglycemia with pre diabetes. Hemoglobin A1c 5.9. Patient will continue with insulin sliding scale. This can be further adjusted at the long- term [facility] facility. Patient had acute renal insufficiency likely from dehydration. This has improved. Patient remains on Aldactone. Patient had paroxysmally atrial fibrillation. This has resolved. Patient now in sinus rhythm. Patient remains on digoxin and metoprolol for rate control. Patient on Eliquis as well. This can be further continued at the [facility]. Vital Signs/Physical Exam: Temp Pulse Resp BP Pulse Ox 97.0 F 74 18 134/62 90 L 07/25/20 08:00 07/25/20 08:00 07/25/20 08:00 07/25/20 08:00 07/25/20 08:00 General: Alert, In no apparent distress, Oriented x3, Cooperative HEENT: Atraumatic Neck: Supple Respiratory: Other (Patient on high-flow oxygen. No significant distress noted .) Cardiovascular: Normal pulses, Regular rate/rhythm Gastrointestinal: Normal bowel sounds Neurological: Normal speech, Normal strength at 5/5 x4 extr, Normal tone, Normal affect Laboratory Data at Discharge: WBC 14.1 K/uL (4.3-10.9) H 07/24/20 08:03 Hgb 14.3 g/dL (12.0-15.0) 07/24/20 08:03 Hct 42.7 % (36.0-45.0) 07/24/20 08:03 Plt Count 187 K/uL (152-406) 07/24/20 08:03 PT 11.2 SECONDS (9.5-12.5) 07/10/20 10:30 INR 0.95 07/10/20 10:30 APTT 27.4 SECONDS (24.3-36.9) 07/10/20 10:30 Sodium 135 mmol/L (136-145) L 07/24/20 03:46 Potassium 4.3 mmol/L (3.5-5.1) 07/24/20 03:46 BUN 72 mg/dL (7-18) H 07/24/20 03:46 Creatinine 1.05 mg/dL (0.55-1.3) 07/24/20 03:46 Glucose 89 mg/dL (74-106) 07/24/20 03:46 Phosphorus 4.5 mg/dL (2.5-4.9) 07/23/20 06:02 Magnesium 2.9 mg/dL (1.8-2.4) H D 07/23/20 06:02 Total Bilirubin 0.8 mg/dL (0.2-1.0) 07/23/20 06:02 AST 38 U/L (15-37) H 07/23/20 06:02 ALT 51 U/L (12-78) 07/23/20 06:02 Alkaline Phosphatase 116 U/L (45-117) 07/23/20 06:02 Troponin I 0.05 ng/mL (0.0-0.045) H 07/11/20 00:45 Triglycerides 101 mg/dL (<150) 07/11/20 03:20 Cholesterol 144 mg/dL (<200) 07/11/20 03:20 HDL Cholesterol 42 mg/dL (40-60) 07/11/20 03:20 Cholesterol/HDL Ratio 3.43 07/11/20 03:20 Home Medications: Losartan Potassium 1 tab PO DAILY 07/10/20 Nifedipine [Nifedipine ER] 1 tab PO DAILY 07/10/20 terbinafine HCL [Terbinafine HCl] 1 tab PO DAILY 07/10/20 Patient Discharge Instructions: Patient be transferred to long-term acute care facility to continue current care and rehab. Patient presented with Fatigue, decreased appetite, shortness of breast secondary to COVID 19 pneumonia with hy poxia complicated with positive strep. Her course was prolonged. Patient remains on high-flow oxygen. Due to her prolonged course long-term acute care facility placement was recommended for pulmonary rehab. Patient has been accepted. Patient and family have agreed with plan of care. Patient will be transferred to long-term acute facility to continue current care. Patient remains on high-flow oxygen. Patient will continue with Solu-Medrol 80 mg IV twice daily. Other medications include Eliquis, Norvasc, digoxin, Aldactone, metoprolol, and Xanax. Patient also on supplementation. Patient will continue at the facility to continue her care. Patient with hypertension. As mentioned above patient will continue with Norvasc and metoprolol. Further adjustment can be done at the facility. Patient with hyperglycemia with pre diabetes. Hemoglobin A1c 5.9. Patient will continue with insulin sliding scale. This can be further adjusted at the long-term acute care facility. Patient had acute renal insufficiency likely from dehydration. This has improved. Patient remains on Aldactone. Patient had paroxysmally atrial fibrillation. This has resolved. Patient now in sinus rhythm. Patient remains on digoxin and metoprolol for rate control. Patient on Eliquis as well. This can be further continued at the long-term acute care facility. Diet: ADA Activity: Ad nettie Followup: SOPHY SORIA [Primary Care Provider] - Time spent managing pt's care (in minutes): 55
[2020-07-25] MEDS: METHYLPREDNISOLONE 125 MG INJ IV SCH ×2 (09:19→20:31)
[2020-07-25] MEDS: FOLIC ACID 1 MG TABLET PO SCH (09:20)
[2020-07-25] MEDS: APIXABAN 5 MG TABLET PO SCH ×2 (09:20→20:32)
[2020-07-25] MEDS: AMLODIPINE 5 MG TAB PO SCH (09:20)
[2020-07-25] MEDS: DIGOXIN 0.25 MG TABLET PO SCH (09:20)
[2020-07-25] MEDS: ASCORBIC ACID 500 MG TABLET PO SCH ×3 (09:21→20:31)
[2020-07-25] MEDS: SPIRONOLACTONE 25 MG TABLET PO SCH ×2 (09:21→20:32)
[2020-07-25] MEDS: VITAMIN D 1000 UNIT TAB PO SCH (09:23)
[2020-07-25] MEDS: MELATONIN 5 MG TABLET PO SCH (20:33)
[2020-07-25 20:35] VITALS: BP 133/61
[2020-07-25 20:37] VITALS: TEMP 97.7
[2020-07-25 23:47] VITALS: O2SAT 88
== END 2020-07-25 21:15 | DRG 177 ==
LOC: ER 09:42 → ERHOLD 11:50 → 4TH 12:57 → OBSVTOIN 07-11 07:48
PROVIDERS: ADMIT Family Medicine; ATTEND Family Medicine
PROC: 5A09557 Assistance with Respiratory Ventilation, Greater than 96 Consecutive Hours, Continuous Positive Airway Pressure (ICD-10-PCS; 2020-07-12)
PROC: XW033E5 Introduction of Remdesivir Anti-infective into Peripheral Vein, Percutaneous Approach, New Technology Group 5 (ICD-10-PCS; principal; 2020-07-14)
PROC: XW13325 Transfusion of Convalescent Plasma (Nonautologous) into Peripheral Vein, Percutaneous Approach, New Technology Group 5 (ICD-10-PCS; 2020-07-14)
DX: U07.1 COVID-19 (principal); J12.82 Pneumonia due to coronavirus disease 2019; J96.01 Acute respiratory failure with hypoxia; I10 Essential (primary) hypertension; E86.0 Dehydration; I48.0 Paroxysmal atrial fibrillation; F41.9 Anxiety disorder, unspecified; N28.9 Disorder of kidney and ureter, unspecified; B95.5 Unspecified streptococcus as the cause of diseases classified elsewhere; R51.9 Headache, unspecified; R73.9 Hyperglycemia, unspecified; R00.0 Tachycardia, unspecified; R73.03 Prediabetes; Z90.49 Acquired absence of other specified parts of digestive tract; Z88.0 Allergy status to penicillin
CPT/HCPCS: 36415; 36430; 71045; 80048; 80053; 80061; 80076; 81003; 81015; 82248; 82550; 82553; 82565; 82728; 82947; 83036; 83605; 83615; 83735; 83880; 84100; 84132; 84145; 84439; 84443; 84484; 85025; 85027; 85379; 85610; 85730; 86140; 86900; 86901; 86927; 87040; 93005; 94002; 94003; 94010; 94660; 94760; 96365; 96375; 97110; 97112; 97116; 97161; 97530; 99285; G0378; J1160; J1815; J1940; J2270; J2920; J2930; J7050